=== PATIENT | male | born 1945 | race Caucasian/White ===

== ENCOUNTER 2017-11-22 10:06 | Inpatient (IN) | payer MEDICARE, BC ==
[~2017-11-22] VITALS: Ht 182.9 cm; Wt 88.9 kg
[~2017-11-22 10:06] MED LIST: ACETAMINOPHEN325 M1 PO; ASPIRIN EC81 M1 PO; AZITHROMYCIN 2250 MG; BACTRIM DS TAB1 EAC1; BENICAR40 MG; BRILINTA90 MG PO; KEFLEX500 MG PO; MEDROL DOSPAK21 TA1; METFORMIN HCL500 MG PO; NITROGLYCERIN0.4 MG SL; NORVASC5 MG PO; PERCOCET 5-3251 EACH; PRINIVIL20 MG PO; SIMVASTATIN20 MG PO; TOPROL XL100 MG PO; TRADJENTA5 MG PO
[2017-11-22 10:10] VITALS: BP 146/98
[2017-11-22] MEDS ORDERED: NEURONTIN 300300 M1 PO (10:19)
[2017-11-22 10:34] LABS: ABSOLUTE BASOPHILS 0.1 thou/uL (0.0-0.2); ABSOLUTE EOSINOPHILS 0.4 thou/uL (0.0-0.7); ABSOLUTE LYMPHOCYTES 1.5 thou/uL (0.8-5.3); ABSOLUTE NEUTROPHILS 4.1 thou/uL (1.6-8.1); BASOPHILS 0.8 %; EOSINOPHILS 5.7 %; HEMATOCRIT 46.9 % (42.0-52.0); HEMOGLOBIN 15.5 gm/dL (14.0-18.0); LYMPHOCYTES 21.5 %; MCH 28.5 pg (26.0-34.0); MCHC 33.1 g/dL (28.0-37.0); MCV 86.2 fL (80.0-100.0); MONOCYTES 14.2 %; MPV 8.9 fl. (7.2-11.1); NUCLEATED RBCS 0 /100WBC; PLATELET COUNT* 190 thou/uL (150-400); POLYS 57.8 %; RBC 5.45 mil/uL (4.50-6.00); RDW-CV 15.3 % (10.5-14.5); WBC 7.1 thou/uL (4.0-11.0)
[2017-11-22 10:40] LABS: ANION GAP 9 mmol/L (7-16); BUN 28 mg/dL (7-18); CALCIUM 9.4 mg/dL (8.5-10.1); CHLORIDE 106 mmol/L (98-107); CO2 28 mmol/L (21-32); CREATININE 1.5 mg/dL (0.6-1.3); GLUCOSE 105 mg/dL (70-99); SODIUM 143 mmol/L (136-145)
[2017-11-22 10:44] LABS: APTT 27.2 Seconds (25.0-31.3); INR 1.2; PROTIME 11.7 Seconds (9.20-11.50)
[2017-11-22 10:59] LABS: ALBUMIN 3.9 g/dL (3.4-5.0); ALKALINE PHOSPHATASE 94 U/L (46-116); CK-MB MASS 1.2 ng/mL (<0.5-3.6); LIPASE 143 U/L (73-393); MAGNESIUM 2.2 mg/dL (1.8-2.4); NT-PRO BRAIN NAT PEPTIDE 7170 pg/mL (<300); SGOT 23 U/L (15-37); SGPT 41 U/L (30-65); TOTAL BILIRUBIN 1.1 mg/dL (<0.1-1.0); TOTAL PROTEIN 7.2 g/dL (6.4-8.2); TROPONIN-I LEVEL <0.06 ng/mL (<0.06)
[2017-11-22] MEDS ORDERED: POTASSIUM20 PO (11:04)
[2017-11-22] MEDS ORDERED: LASIX 40 MG TAB40 M2 PO (11:04)
--- NOTE | 2017-11-22 13:33 | NUR ---
VSS, ASSUMED CARE OF PT IN THE AM, ASSESSMENT PERFORMED AND CHARTED, PT HAS 2+ EDEMA AND IS UP AD MICHAEL AND STATES CHEST PAIN RATES PAIN 3 OUT OF 10, PT IS A&O4 AND PT WAS ON 2L NC SAOT AT 97%, PT WAS PLACED ON RA, WILL FOLLOW WITH PLAN OF CARE AND HOURLY ROUNDS, FALL PRECAUTIONS IN PLACE AND CALL LIGHT N REACH, IS AT BEDSIDE,
--- NOTE | 2017-11-22 16:40 | EKG ---
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 : 1945 Requested By: Fredrick Garcia Order Number: [id number] MD: Rigo Gamboa Measurements Intervals [place] Rate: 101 P: 20 MN: 208 QRS: -65 QRSD: 102 T: 93 QT: 373 QTc: 484 Interpretive Statements Sinus tachycardia Paired ventricular premature complexes Borderline prolonged [place] interval Left atrial enlargement Left anterior fascicular block Anterior infarct, old Compared to ECG 08/27/2015 14:00:04 Left anterior fascicular block now present Electronically Signed On 11-22-2017 16:40:28 CDT by iRgo Gamboa [email or web address] <ELECTRONICALLY SIGNED> By: Rigo Gamboa MD, FACC 11/22/17 1640 1011 1011 Rigo Gamboa MD, FAC /EPI
--- NOTE | 2017-11-22 16:44 | EKG ---
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28 : 1945 Requested By: Fredrick Garcia Order Number: [id number] Irma MD: Rigo Gamboa Measurements Intervals [place] Rate: 83 P: 59 W[place]: 215 QRS: -72 QRSD: 109 T: 96 QT: 427 QTc: 502 Interpretive Statements Sinus rhythm Paired ventricular premature complexes Borderline prolonged [place] interval Left atrial enlargement Left anterior fascicular block Prolonged QT interval Compared to ECG 08/27/2015 14:00:04 Left anterior fascicular block now present Prolonged QT interval now present Left-axis deviation no longer present Electronically Signed On 11-22-2017 16:43:53 CDT by Rigo Gamboa [email or web address] <ELECTRONICALLY SIGNED> By: Rigo Gamboa MD, FACC 11/22/17 1643 1540 1540 Rigo Gamboa MD, FACC /EPI
--- NOTE | 2017-11-22 16:51 | 2DMMODE ---
[place] [address] 2 D/M-MODE ECHOCARDIOGRAM Name: PRISCILA BERMAN Vilma Room: [address] IN [facility]#: [id number] Admission: 11/22/17 Attend Phys: Daniel Brizuela Discharge: Date of : 47 Date of Service: 11/22/17 1650 Report #: [id number] THIS REPORT FOR: //name// APPROVED REPORT Study performed: 11/22/2017 14:46:24 EXAM: Comprehensive 2D, Doppler, and color-flow Echocardiogram Patient Location: In-Patient Room #: 218 Status: routine BSA: 2.16 HR: 67 bpm BP: 123/96 mmHg Rhythm: NSR Other Information Study Quality: Good Indications Congestive Heart Failure 2D Dimensions LVEF(%): 25.18 (>50%) IVSd: 11.12 (7-11mm) LVOT Diam: 23.68 (18-24mm) LVDd: 61.50 mm PWd: 10.72 (7-11mm) Ascending Ao: 38.24 (22-36mm) LVDs: 54.19 (25-40mm) Aortic Root: 37.11 mm Gamez's LVEF: 25.18 % Volumes Left Atrial Volume (Systole) LA ESV Index: 40.20 mL/m2 Aortic Valve AoV Peak Alfredo.: 0.81 m/s AO Peak Gr.: 2.63 mmHg LVOT Max P.16 mmHg AO Mean Gr.: 1.62 mmHg LVOT Mean P.53 mmHg LVOT Max V: 0.54 m/s AO V2 VTI: 15.40 cm LVOT Mean V: 0.33 m/s JENNIFER (VTI): 2.36 cm2 LVOT V1 VTI: 8.24 cm TDI Lateral E' Alfredo.: 0.09 m/[place] [address] 2 D/M-MODE ECHOCARDIOGRAM Name: PRISCILA BERMAN Room: [address] IN [facility]#: [id number] Admission: 11/22/17 Attend Phys: Daniel Brizuela Discharge: Date of : 47 Date of Service: 11/22/17 1650 Report #: [id number] Pulmonary Valve PV Peak Alfredo.: 0.55 m/s PV Peak Gr.: 1.21 mmHg Tricuspid Valve TR Peak Gr.: 30.79 mmHg RVSP: 35.00 mmHg Left Ventricle Left ventricle is moderately dilated. There is global left ventricular hypokinesis. There is normal left ventricular wall thickness. Left ventricular systolic function is severely decreased. LVEF is 20-25%. Grade IV - fixed restrictive diastolic dysfunction. Right Ventricle Right ventricle is mildly dilated. The right ventricular systolic function is normal. Atria Left atrium is moderately dilated. Right atrium is dilated. The right atrium size is normal. Aortic Valve The aortic valve is normal in structure. Trace aortic regurgitation. There is no aortic valvular stenosis. Mitral Valve The mitral valve is normal in structure. Mild mitral regurgitation. No evidence of mitral valve stenosis. Tricuspid Valve The tricuspid valve is normal in structure. Trace tricuspid regurgitation. The RVSP is 35-40 mmHg. Pulmonic Valve The pulmonary valve is normal in structure. Mild pulmonic regurgitation. Great Vessels The aortic root is normal in size. IVC is normal in size and collapses with >50% inspiration Pericardium There is no pericardial effusion. <Conclusion> [place] [address] 2 D/M-MODE ECHOCARDIOGRAM Name: PRISCILA BERMAN Room: [address] IN [facility].#: [id number] Admission: 11/22/17 Attend Phys: Daniel Brizuela Discharge: Date of : 47 Date of Service: 11/22/17 1650 Report #: [id number] Left ventricle is moderately dilated. There is normal left ventricular wall thickness. Left ventricular systolic function is severely decreased. LVEF is 20-25%. Grade IV - fixed restrictive diastolic dysfunction. There is global left ventricular hypokinesis. Right ventricle is mildly dilated. Left atrium is moderately dilated. Right atrium is dilated. Trace aortic regurgitation. Mild mitral regurgitation. Trace tricuspid regurgitation. The RVSP is 35-40 mmHg. <ELECTRONICALLY SIGNED> By: Rigo Gamboa MD, FACC 11/22/171649 49 49 Rigo Gamboa MD, FACC /INF
[2017-11-22 16:57] VITALS: BP 119/94
[2017-11-22 20:30] VITALS: BP 129/99
[2017-11-23] VITALS (7 sets, daily range): BP systolic 105–135; BP diastolic 74–99
--- NOTE | 2017-11-23 04:50 | NUR ---
ASSUMED CARE AROUND 1930. PT A/OX4, PLEASANT. DENIES ANY PAIN OR SOA. TELE MONITOR TRACING SR WITH FREQUENT PVC'S. VSS. ON ROOM AIR. UP AD MICHAEL. VOIDING PER URINAL IN BR. IV SALINE LOCKED. FAMILY AT BEDSIDE LAST NIGHT AND ASKING QUESTIONS ABOUT EF AND CHF. EDUCATION DONE. SEE CHARTING. CALL LIGHT IN REACH, WILL CONTINUE WITH PLAN OF CARE.
[2017-11-23 05:02] LABS: ABSOLUTE BASOPHILS 0.1 thou/uL (0.0-0.2); ABSOLUTE EOSINOPHILS 0.4 thou/uL (0.0-0.7); ABSOLUTE LYMPHOCYTES 1.2 thou/uL (0.8-5.3); ABSOLUTE MONOCYTES 0.9 thou/uL (0.0-1.2); ABSOLUTE NEUTROPHILS 4.8 thou/uL (1.6-8.1); BASOPHILS 0.7 %; EOSINOPHILS 5.3 %; HEMATOCRIT 43.5 % (42.0-52.0); HEMOGLOBIN 14.4 gm/dL (14.0-18.0); LYMPHOCYTES 16.3 %; MCH 28.6 pg (26.0-34.0); MCHC 33.1 g/dL (28.0-37.0); MCV 86.3 fL (80.0-100.0); MONOCYTES 12.1 %; MPV 9.1 fl. (7.2-11.1); NUCLEATED RBCS 0 /100WBC; PLATELET COUNT* 174 thou/uL (150-400); POLYS 65.6 %; RBC 5.04 mil/uL (4.50-6.00); WBC 7.4 thou/uL (4.0-11.0)
[2017-11-23 05:20] LABS: CALCIUM 9.2 mg/dL (8.5-10.1); CREATININE 1.4 mg/dL (0.6-1.3); POTASSIUM 3.7 mmol/L (3.5-5.1)
--- NOTE | 2017-11-23 11:38 | EKG ---
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1945 Requested By: Fredrick Garcia Order Number: [id number] Reading MD: Abundio Abdullahi Measurements Intervals [place] Rate: 103 P: -18 AR: 206 QRS: -79 QRSD: 106 T: 96 QT: 393 QTc: 515 Interpretive Statements Sinus arrhythmia Multiform ventricular premature complexes Probable left atrial enlargement Left anterior fascicular block Anterior Q waves, possibly due to LVH Nonspecific T abnormalities, lateral leads Prolonged QT interval Compared to ECG 11/22/2017 15:40:23 no change Electronically Signed On 11-23-2017 11:37:53 CDT by Abundio Abdullahi [email or web address] <ELECTRONICALLY SIGNED> By: Abundio Abdullahi MD, [facility] 11/23/17 1137 00 00 Abundio Abdullahi MD, [facility] /EPI
--- NOTE | 2017-11-23 12:17 | NUR ---
RECEIVED PT CARE 0700. PT IS ALERT AND ORIENTED X4. VSS. 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 PATIENT DENIES ANY SOA. O2 SAT 97% ON ROOM AIR. UP AD MICHAEL IN ROOM. GAIT IS STEADY. AM ASSESSMENT CHARTED. MEDS PER MAR. VOIDING PER URINAL. ACCURATE I/O'S RECORDED. PATIENT UP TO DATE ON PLAN OF CARE. CALL LIGHT WITHIN REACH. WILL CONTINUE TO MONITOR.
--- NOTE | 2017-11-23 14:22 | NUR ---
MET WITH PT TO DISCUSS HOME STIUATION/DC PLANNING. PT LIVES WITH . HE IS INDEPENDENT AND ACTIVE. USES NO EQUIPMENT AND HASN'T HAD HH. STATES HE IS FEELING IMPROVED. HOPES TO GO HOME SOON AND DENIES NEEDS. CARDIAC REHAB NURSE SAW TODAY AND GAVE ED. WILL FOLLOW
--- NOTE | 2017-11-23 17:24 | NUR ---
PATIENT PROGRESSING TOWARDS GOALS. NO COMPLAINTS OF PAIN THIS SHIFT. GOOD URINE OUTPUT. TOLERATING HIS DIET WELL WITHOUT NAUSEA OR VOMITING. UP AMBULATORY IN ROOM WITH BATHROOM PRIVILEDGES. GAIT IS STEADY. PLANNING FOR DC TO HOME TOMORROW IF STABLE. HOURLY ROUNDING CHARTED. CALL LIGHT WITHIN REACH. WILL CONTINUE TO MONITOR.
[2017-11-24 00:04] VITALS: BP 123/88
[2017-11-24 04:00] VITALS: BP 103/66
--- NOTE | 2017-11-24 04:37 | NUR ---
END SHIFT: PT RESTED WELL. NO COMPLAINTS. NO PAIN. ASESSMENT UNCHANGED. VSS. AWAITING DC HOME TODAY. SAFETY PRECAUTIONS IN PLACE. CALL LIGHT IN REACH. PERFORMED HOURLY ROUNDING. WILL CONT TO MONITOR.
[2017-11-24 05:19] LABS: ABSOLUTE EOSINOPHILS 0.4 thou/uL (0.0-0.7); ABSOLUTE NEUTROPHILS 5.3 thou/uL (1.6-8.1); BASOPHILS 0.5 %; EOSINOPHILS 5.3 %; HEMATOCRIT 45.7 % (42.0-52.0); HEMOGLOBIN 15.1 gm/dL (14.0-18.0); MCH 28.4 pg (26.0-34.0); MCHC 33.1 g/dL (28.0-37.0); MCV 85.9 fL (80.0-100.0); MONOCYTES 12.5 %; NUCLEATED RBCS 0 /100WBC; PLATELET COUNT* 170 thou/uL (150-400); POLYS 68.7 %; RBC 5.32 mil/uL (4.50-6.00); RDW-CV 14.9 % (10.5-14.5); WBC 7.7 thou/uL (4.0-11.0)
[2017-11-24 05:32] LABS: CALCIUM 9.2 mg/dL (8.5-10.1); CREATININE 1.4 mg/dL (0.6-1.3); POTASSIUM 3.6 mmol/L (3.5-5.1)
[2017-11-24 07:30] VITALS: BP 134/86
[2017-11-24 11:27] VITALS: BP 126/79
[2017-11-24] MEDS ORDERED: COZAAR 25 MG TA25 M1 PO (12:19)
[2017-11-24] MEDS ORDERED: CARVEDILOL3.125 MG PO (12:21)
--- NOTE | 2017-11-24 13:07 | NUR ---
CM SPOKE TO THE PATIENT TO DISCUSS DISCHARGE PLANNING NEEDS AND ANY QUESTIONS OR CONCENS THAT HE MAY HAVE. PATIENT INFORMS THAT HE NEEDS A LIST OF PCP. CM PROVIDED PATIENT A LIST OF PCP'S IN THE AREA. PATIENT TO DISCHARGE HOME TODAY AND HAS NO OTHER QUESTIONS OR CONCERNS AT THIS TIME. CM WILL REMAIN AVAILABLE TO ASSIST AND FOLLOW NEEDED.
--- NOTE | 2017-11-24 13:56 | NUR ---
VSS, ASSUMED CARE IN THE AM, ASSESSMENT PERFORMED AND CHARTED, FALL PRECAUTIONS IN PLACE AND CALL LIGHT IN REACH, PT IS UP AD MICHAEL AND DENIES ANY PAIN, PT GOAL IS TO D/C TO HOME ON DAY OF CARE, PT IS TRACINGS SR WITH PVCS ON THE MONITOR, PT ON RA WITH FAMILY AT BEDSIDE AT THIS TIME I HAVE RECIEVED D/C ORDERS, FILLED OUT D/C MEDICATIONS AND INSTRUCTIONS, PROVITED SCRIPTS AND MEDICATIONS INFO SHEETS WITH SCRIPTS, PT DAINES ANY QUESTIONS OR CONCERNS AT TIME OF D/C, IV AND TELE MONITOR TAKEN OUT, PT GATHERED BELONGINGS WALKED OUT BY STAFF AND HOURLY ROUNDS COMPLETED.
== END 2017-11-24 14:07 | disposition home or self-care (01) | DRG 291 ==
LOC: M.ERS 10:06 → M.TBA-ER 11:02 → M.2W 11:02
PROVIDERS: Family Medicine; ADMIT Internal Medicine
DX: I13.0 Hypertensive heart and chronic kidney disease with heart failure and stage 1 through stage 4 chronic kidney disease, or unspecified chronic kidney disease (principal); I50.23 Acute on chronic systolic (congestive) heart failure; I25.110 Atherosclerotic heart disease of native coronary artery with unstable angina pectoris; N18.3 Chronic kidney disease, stage 3 (moderate); E78.00 Pure hypercholesterolemia, unspecified; E78.5 Hyperlipidemia, unspecified; E11.22 Type 2 diabetes mellitus with diabetic chronic kidney disease; I25.5 Ischemic cardiomyopathy; I25.2 Old myocardial infarction; Z95.5 Presence of coronary angioplasty implant and graft; Z90.5 Acquired absence of kidney; Z85.528 Personal history of other malignant neoplasm of kidney; Z79.899 Other long term (current) drug therapy; Z79.82 Long term (current) use of aspirin; Z79.84 Long term (current) use of oral hypoglycemic drugs

== ENCOUNTER 2019-12-24 12:15 | Inpatient (IN) | payer MEDICARE, BC ==
[~2019-12-24] VITALS: Ht 185.4 cm; Wt 92.1 kg
[2019-12-24] VITALS (9 sets, daily range): BP systolic 112–144; BP diastolic 71–96
[~2019-12-24 12:15] MED LIST changes: +CARVEDILOL3.125 MG PO; +COZAAR 25 MG TA25 M1 PO; +LASIX 40 MG TAB40 M2 PO; +NEURONTIN 300300 M1 PO; +POTASSIUM20 PO
[2019-12-24 12:30] LABS: ABSOLUTE EOSINOPHILS 0.2 thou/uL (0.0-0.7); ABSOLUTE LYMPHOCYTES 0.9 thou/uL (0.8-5.3); ABSOLUTE MONOCYTES 0.6 thou/uL (0.0-1.2); ABSOLUTE NEUTROPHILS 3.2 thou/uL (1.6-8.1); EOSINOPHILS 4.8 %; HEMOGLOBIN 15.6 gm/dL (14.0-18.0); LYMPHOCYTES 18.6 %; MCH 30.3 pg (26.0-34.0); MCHC 33.9 g/dL (28.0-37.0); MCV 89.4 fL (80.0-100.0); MONOCYTES 11.9 %; MPV 8.6 fl. (7.2-11.1); NUCLEATED RBCS 0 /100WBC; PLATELET COUNT* 164 thou/uL (150-400); POLYS 63.7 %; RBC 5.14 mil/uL (4.50-6.00); RDW-CV 14.8 % (10.5-14.5); WBC 5.1 thou/uL (4.0-11.0)
[2019-12-24 12:38] LABS: CALCIUM 8.8 mg/dL (8.5-10.1); CREATININE 1.5 mg/dL (0.6-1.3); POTASSIUM 3.9 mmol/L (3.5-5.1)
[2019-12-24] MEDS ORDERED: ENTRESTO 24 MG1 EACH PO (12:38)
[2019-12-24] MEDS ORDERED: TRADJENTA5 MG (12:38)
[2019-12-24 12:39] LABS: APTT 26.5 Seconds (25.0-31.3); INR 1.1; PROTIME 11.4 Seconds (9.20-11.50)
[2019-12-24 12:49] LABS: ALBUMIN 3.7 g/dL (3.4-5.0); TOTAL BILIRUBIN 0.9 mg/dL (<0.1-1.0); TOTAL PROTEIN 7.3 g/dL (6.4-8.2)
--- NOTE | 2019-12-24 16:36 | EKG ---
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 : 1945 Requested By: Sotero Carcamo Order Number: [id number] MD: Abundio Abdullahi Measurements Intervals [place] Rate: 83 P: 66 SD: 70 QRS: -80 QRSD: 119 T: 120 QT: 413 QTc: 486 Interpretive Statements Sinus rhythm Ventricular bigeminy Left atrial enlargement Left anterior fascicular block Nonspecific T abnormalities, lateral leads Compared to ECG 11/22/2017 21:01:07 Q waves no longer present Prolonged QT interval no longer present T-wave abnormality still present Electronically Signed On 12-24-2019 16:34:48 CDT by Abundio Abdullahi [email or web address] <ELECTRONICALLY SIGNED> By: Abundio Abdullahi MD, [facility] 12/24/19 1634 1217 1217 Abundio Abdullahi MD, [facility] /EPI
--- NOTE | 2019-12-24 17:11 | CARD ---
[address] [address] CARDIAC CATH REPORT Name: PRISCILA BERMAN Room: [address] IN [facility]#: [id number] Admission: 12/24/19 Attend Phys: Alonzo Cox Discharge: Date of : 47 Report #: [id number] THIS REPORT FOR: //name// cc: Walt Roy John E. DO ~ APPROVED REPORT Study performed: 12/24/2019 13:32:00 Patient Details Patient Status: ED Room #: The patient is a 74 year-old male Event Personnel Abundio Abdullahi Rubber Compounder Mixer, Dixie Rodriguez RN RN, Noemy Anne RN RN, Terese Lopez RTR Scrub, Laura Garcia RTR Monitor Procedures Performed Art Access - R radial artery Left Heart Cath w/or w/o Coronaries JONO Place w/wo Plasty Single LAD JONO Place w/wo Plasty Single CIRC Hemostasis with Hemoband Indication Abnormal ECG, Arrhythmia, Unstable angina , Chest pain Risk Factors Hypercholesterolemia, Coronary Artery DiseaseHypertension, Diabetes Previous Procedures/Diagnoses Previous PCI, Previous CHFPrevious DE Admission/Lab Medications/Medications given during procedure Glycoprotein IllbIlla Inhibitors, Heparin Unfract. Procedure Narrative The patient was brought urgently to the Cardiac Catheterization Laboratory and was prepped and draped in a sterile manner. The right wrist was infiltrated with 2% Lidocaine subcutaneous anesthesia. A Slender Glidesheath sheath was inserted into the right radial artery. Coronary angiography was performed using coronary diagnostic catheters. The right coronary system was accessed and visualized with a Diagnostic 6 Fr 3 DRC catheter. The left coronary system was accessed and visualized with a Diagnostic 6 Fr JL 4 catheter. The left ventricle was accessed [place] [address] CARDIAC CATH REPORT Name: PRISCILA BERMAN Room: [address]#: [id number] Admission: 12/24/19 Attend Phys: Alonzo Cox Discharge: Date of : 47 Report #: [id number] catheter. Left ventricular/Aortic Valve gradient assessed via catheter pullback. Closure device was deployed with a 6 Fr Vasc-Band Reg 24cm. The patient tolerated the procedure well and there were no complications associated with the procedure. There was no hematoma. Unable to cannulate RCA with diagnostic JR4 catheter because of unusual takeoff in the right coronary cusp. Intraoperative Conscious Sedation Sedation start time: 14:43 Case end Time: 15:52 Fentanyl 25.0 mcg Versed 2 mg Fluoro Time: 14.5 minutes Dose: DAP [id number] cGycm2 2726 mGy Contrast Type and Amount: Visipaque 250 ml Coronary Angiography The patient's coronary anatomy is right dominant. Diagnostic Cath Left Main 30% ostial stenosis LAD stent in the proximal and mid lad had a mid 90% stenosis with thrombus. The distal LAD beyond the stent had a 90% stenosis, although the distal LAD had a small lumen. Circumflex 80% stenois in the mid circumflex artery beyond the first marginal branch, and 80% stenosis noted beyond the 2nd marginal branch, and a 90% stenosis noted prior to the third marginal branch. The third marginal branch had an ostial 70% stenosis. Right Coronary Mid RCA was 100% stenosis, with slow antegrade flow, and retrograde flow from collaterals from the left coronary artery. Left Ventriculography Left Ventriculography was not performed. Hemodynamics The aortic pressure is 107/43 mmHg with a mean of 69 mmHg. The left ventricular pressure is 97/10 mmHg with a mean of mmHg. The left ventricular end diastolic pressure is 20 mmHg. There was no gradient across the aortic valve upon pullback. Pullback from the left ventricle to the aorta revealed no gradient across the aortic valve. PCI Technique Lesion Anticoagulation was achieved with Heparin. bolus of IV aggrastat given Percutaneous coronary [place] [address] CARDIAC CATH REPORT Name: CULLENPRISCILA L Room: [address] IN [facility]#: [id number] Admission: 12/24/19 Attend Phys: Alonzo Cox Discharge: Date of : 47 Report #: [id number] left anterior descending artery segment. The lesion stenosis prior to intervention was 90% with ALVIN 3 flow. A 6F XB 4.0 Guide Catheter was used to engage the left ostium. A IG: BMW 190cm Interventional Guidewire was used to cross the lesion. BALLOON DILATION A Balloon catheter Trek RX 2.5 X 8 was inserted and inflated up to 16.00atm for 16seconds. Repeat angiography revealed the following post-dilatation results: 50% stenosis. Additional Inflation: 18.00atm for 12seconds. STENT DEPLOYMENT A drug-eluting stent Olmitz RX Stent 3.0X22mm was inserted and inflated up to 12.00atm for 17seconds. Repeat angiography revealed the following post-stent deployment results: 0% stenosis. Additional Inflation: 15.00atm for 15seconds. Additional Inflation: 20.00atm for 18seconds. Final angiography reveals 0 % stenosis with ALVIN 3 flow. PCI Technique Lesion 2 Percutaneous Coronary Intervention was performed on the distal circumflex artery segment. Percutaneous coronary intervention was performed on the distal circumflex artery segment. The lesion stenosis prior to intervention was 90% with ALVIN flow. A 6F XB 4.0 Guide Catheter was used to engage the left ostium. A IG: BMW 190cm Interventional Guidewire was used to cross the lesion. Balloon Dilation A Balloon catheter Trek RX 2.5 X 8 was inserted and inflated up to 7.00atm for 15seconds. Repeat angiography revealed the following post-dilatation results: 30% stenosis. Additional Inflation: 16.00atm for 24seconds. Stent Deployment A drug-eluting stent Olmitz RX Stent 2.62R05cq was inserted and inflated up to 10.00atm for 15seconds. Repeat angiography revealed the following post-stent deployment results: 0% stenosis. Additional Inflation: 11.00atm for 10seconds. Additional Inflation: 17.00atm for 9seconds. Final angiography reveals 0 % stenosis with ALVIN 3 flow. PCI Technique Lesion 3 Percutaneous Coronary Intervention was performed on the mid circumflex artery segment. Patient was preloaded with Aggrastat 9.[address] [address] CARDIAC CATH REPORT Name: PRISCILA BERMAN Room: [address]#: [id number] Admission: 12/24/19 Attend Phys: Alonzo Cox Discharge: Date of : 47 Report #: [id number]. Percutaneous coronary intervention was performed on the mid circumflex artery segment. The lesion stenosis prior to intervention was 80% with ALVIN 3 flow. A 6F XB 4.0 Guide Catheter was used to engage the left ostium. A IG: BMW 190cm Interventional Guidewire was used to cross the lesion. Balloon Dilation A Balloon catheter Trek RX 2.5 X 8 was inserted and inflated up to 20.00atm for 7seconds. Repeat angiography revealed the following post-dilatation results: 30% stenosis. Stent Deployment A drug-eluting stent Landon RX Stent 3.0X38mm was inserted and inflated up to 14.00atm for 18seconds. Repeat angiography revealed the following post-stent deployment results: 0% stenosis. Additional Inflation: 20.00atm for 21seconds. The second stent in the mid circumflex artery was placed so that there was minimal overlap between this stent and the more distal stent in the circumflex artery. Final angiography reveals 0 % stenosis with ALVIN 3 flow. Conclusion 1. 90% stenosis noted of a stent in the mid lad with thrombus 2. 80% stenosis noted in the mid circumflex artery, and 80% and 90% sequential stenosis noted in the distal circumflex 3. 100% stenosis noted of the mid rca, with slow antegrade flow, and retrograde flow from collaterals from the left coronary artery. 4. successful placement of a drug eluting stent in the mid lad 5. successful placement of 2 drug eluting stents in the cicumflex artery. Recommendations consider attempts at stenting of the rca at a later date Medications Administered Prasugrel <ELECTRONICALLY SIGNED> By: Abundio Abdullahi MD, [facility] 12/24/191708 08 08Dasantiago Abdullahi MD, [facility] /INF
[2019-12-25] VITALS (7 sets, daily range): BP systolic 102–131; BP diastolic 58–92
[2019-12-25 04:39] LABS: HEMATOCRIT 42.2 % (42.0-52.0); HEMOGLOBIN 14.3 gm/dL (14.0-18.0); MCH 30.4 pg (26.0-34.0); MCV 89.3 fL (80.0-100.0); MPV 8.7 fl. (7.2-11.1); RBC 4.72 mil/uL (4.50-6.00); RDW-CV 14.6 % (10.5-14.5); WBC 5.6 thou/uL (4.0-11.0)
[2019-12-25 04:59] LABS: ANION GAP 10 mmol/L (7-16); BUN 16 mg/dL (7-18); CALCIUM 8.5 mg/dL (8.5-10.1); CHLORIDE 104 mmol/L (98-107); CHOLESTEROL 160 mg/dL (<200); CO2 26 mmol/L (21-32); CREATININE 1.4 mg/dL (0.6-1.3); GLUCOSE 113 mg/dL (70-99); HDL CHOLESTEROL 44 mg/dL (>40); LDL CHOLESTEROL 104 mg/dL (<100); POTASSIUM 3.6 mmol/L (3.5-5.1); SODIUM 140 mmol/L (136-145); TC:HDL 3.6 Ratio (Not establshd); TRIGLYCERIDE 62 mg/dL (<150); VLDL 12 mg/dL (<40)
[2019-12-25 05:32] LABS: SERUM ASSESSMENT CLEAR; TROPONIN-I LEVEL 12.37 ng/mL (<0.06)
--- NOTE | 2019-12-25 10:09 | CON ---
[address] [address] CONSULTATION Name: PRISCILA BERMAN Room: [address] IN .R.#: [id number] Admission: 12/24/19 Attend Phys: Alonzo Cox Discharge: Date of : 47 Report #: [id number] THIS REPORT FOR: //name// cc: Walt Roy John E. DO ~ THIS REPORT FOR: //name// CC: Walt Hernandez DATE OF SERVICE: 12/24/2019 CARDIOLOGY CONSULTATION HISTORY OF PRESENT ILLNESS: The patient is a 74-year-old white male who came to the Emergency Room today complaining of chest pain. The patient initially presented in 2011 with chest pain. He had a heart catheterization here at [place] and I placed two drug-eluting stents in the LAD. He has done well since that time. He had evidence of an ischemic cardiomyopathy at that time. Ejection fraction in 2016 was 35%. However, echocardiogram last July showed an ejection fraction only 25%. He has been followed by my partner, Dr. Rigo Gamboa. He does not exercise on a regular basis. He denies any recurrent chest pain until the past couple of weeks. He has been having recurrent pain in his chest. It goes into arm and jaw. He had an episode last night. It returned this morning. His finally brought him to the Emergency Room, he was given nitroglycerin that seemed to help. The pain was not related to food. He had no bleeding. He has had no cough or fever. He denies exertional dyspnea, palpitations, syncope, or peripheral edema. He has had no bleeding. PAST MEDICAL HISTORY: He had previous history of kidney cancer treated by nephrectomy at [place] in the past. He has a history of hyperlipidemia. MEDICATIONS: Include aspirin, carvedilol, Lasix, Neurontin, metformin, Tradjenta, Entresto. ALLERGIES: HE HAS PREVIOUS INTOLERANCE TO STATIN DRUGS. FAMILY HISTORY: His father had heart disease. SOCIAL HISTORY: He is . He and his live in [place]. 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 No smoking or alcohol abuse. REVIEW OF SYSTEMS: He is hard of hearing. No history of stroke, [place] [address] CONSULTATION Name: PRISCILA BERMAN Room: [address]#: [id number] Admission: 12/24/19 Attend Phys: Alonzo Cox Discharge: Date of : 47 Report #: [id number] carotid Doppler study showed no significant blockage. He has no history of asthma, liver disease, arthritis, chronic skin condition, psychiatric illness. PHYSICAL EXAMINATION: GENERAL: Revealed an elderly male who appeared in no distress. VITAL SIGNS: He had a blood pressure of 120/80, pulse 60, he is afebrile. HEENT: He was anicteric. Conjunctivae pink. Mucous membranes moist. NECK: Veins nondistended. No carotid bruits. CHEST: Clear to auscultation. CARDIOVASCULAR: Regular rate and rhythm. ABDOMEN: Soft. EXTREMITIES: Had no edema. Dorsalis pedis pulse cannot be palpated. SKIN: Cool and dry. NEUROLOGIC: Nonfocal. RADIOLOGICAL DATA: ECG showed a sinus rhythm with ventricular bigeminy. There is evidence of a left anterior fascicular block, poor R-wave progression. There was only nonspecific T-wave changes noted. His workup in the Emergency Room, he had a portable chest x-ray that showed normal heart size and clear lung cosme. LABORATORY DATA: Sodium 142, BUN 22, creatinine 1.5. His liver function studies were normal. Troponin 0.53. His white blood cell count 5.1, hemoglobin 15.6. IMPRESSION AND RECOMMENDATIONS: 1. Unstable angina. Recommend cardiac catheterization. 2. Ischemic cardiomyopathy. The patient appears stable on a beta kathy and Entresto. I would consider adding spironolactone. 3. Diabetes. 4. Chronic kidney disease. 5. Previous removal of renal cell carcinoma. 6. Hard of hearing. <ELECTRONICALLY SIGNED> By: Abundio Abdullahi MD, FACC 12/25/19 1009 1349 [id number] Abdullahi MD, FACC /nt
--- NOTE | 2019-12-25 12:38 | 2DMMODE ---
[place] [address] 2 D/M-MODE ECHOCARDIOGRAM Name: PRISCILA BERMAN Room: [address] IN [facility]#: [id number] Admission: 12/24/19 Attend Phys: Daniel Brizuela Discharge: Date of : 47 Date of Service: 12/25/19 1236 Report #: [id number] THIS REPORT FOR: cc: Walt Roy John E. DO Liston, Michael J. MD [facility] ~ APPROVED REPORT Study performed: 12/25/2019 09:50:42 EXAM: Comprehensive 2D, Doppler, and color-flow Echocardiogram Patient Location: In-Patient Room #: [facility] Status: routine BSA: 2.17 HR: 63 bpm BP: 116/84 mmHg Rhythm: NSR Other Information Study Quality: Good Indications Chest Pain 2D Dimensions IVSd: 13.47 (7-11mm) LVOT Diam: 22.45 (18-24mm) LVDd: 62.75 mm PWd: 9.91 (7-11mm) Ascending Ao: 38.10 (22-36mm) LVDs: 54.10 (25-40mm) Aortic Root: 40.86 mm Volumes Left Atrial Volume (Systole) LA ESV Index: 42.80 mL/m2 Aortic Valve AoV Peak Alfredo.: 1.11 m/s AO Peak Gr.: 4.93 mmHg LVOT Max P.72 mmHg AO Mean Gr.: 2.76 mmHg LVOT Mean P.66 mmHg LVOT Max V: 0.66 m/s AO V2 VTI: 18.42 cm LVOT Mean V: 0.36 m/s JENNIFER (VTI): 2.22 cm2 LVOT V1 VTI: 10.34 [place] [address] 2 D/M-MODE ECHOCARDIOGRAM Name: PRISCILA BERMAN Room: [address]#: [id number] Admission: 12/24/19 Attend Phys: Daniel Brizuela Discharge: Date of : 47 Date of Service: 12/25/19 1236 Report #: [id number] TDI Medial E' Alfredo.: 0.04 m/s Lateral E' Alfredo.: 0.09 m/s Pulmonary Valve PV Peak Alfredo.: 0.73 m/s PV Peak Gr.: 2.10 mmHg Tricuspid Valve RAP Estimate: 15.00 mmHg TR Peak Gr.: 37.05 mmHg RVSP: 52.00 mmHg PA Pressure: 52.00 mmHg Left Ventricle Left ventricle is mildly dilated. There is akinesis of the anterior, septal and apical almeida. There is normal left ventricular wall thickness. Left ventricular systolic function is severely decreased. LVEF is 25-30%. Transmitral Doppler flow pattern suggests restrictive physiology. Right Ventricle Right ventricle is moderately dilated. The right ventricular systolic function is normal. Atria Left atrium is moderately dilated. Right atrium is moderately dilated. Aortic Valve Mild aortic valve sclerosis. Trace aortic regurgitation. There is no aortic valvular stenosis. Mitral Valve The mitral valve is normal in structure. Mild mitral regurgitation. No evidence of mitral valve stenosis. Tricuspid Valve The tricuspid valve is normal in structure. Trace tricuspid regurgitation. Moderate pulmonary hypertension. Pulmonic Valve The pulmonary valve is normal in structure. Mild pulmonic regurgitation. Great Vessels The aortic root is normal in size. IVC is dilated and collapses <50% [place] [address] 2 D/M-MODE ECHOCARDIOGRAM Name: PRISCILA BERMAN Vilma Room: [address]#: [id number] Admission: 12/24/19 Attend Phys: Daniel Brizuela Discharge: Date of : 47 Date of Service: 12/25/19 1236 Report #: [id number] Pericardium There is no pericardial effusion. <Conclusion> Left ventricle is mildly dilated. There is normal left ventricular wall thickness. Left ventricular systolic function is severely decreased. LVEF is 25-30%. Transmitral Doppler flow pattern suggests restrictive physiology. Right ventricle is moderately dilated. Left atrium is moderately dilated. Right atrium is moderately dilated. Mild aortic valve sclerosis. Trace aortic regurgitation. Mild mitral regurgitation. Trace tricuspid regurgitation. Moderate pulmonary hypertension. IVC is dilated and collapses <50% with inspiration. <ELECTRONICALLY SIGNED> By: Rigo Gamboa MD, FACC 12/25/19 1236 1236 1236 Rigo Gamboa MD, FACC /INF
--- NOTE | 2019-12-25 14:19 | EKG ---
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 : 1945 Requested By: Abundio Abdullahi Order Number: [id number] Irma MD: Abundio Abdullahi Measurements Intervals [place] Rate: 62 P: 55 OH: 224 QRS: -78 QRSD: 124 T: 118 QT: 483 QTc: 491 Interpretive Statements Sinus rhythm late transition Ventricular trigeminy Prolonged [place] interval Probable left atrial enlargement Nonspecific IVCD with LAD repolarization abnormality Compared to ECG 12/24/2019 12:17:02 First degree AV block now present Electronically Signed On 12-25-2019 14:17:53 CDT by Abundio Abdullahi [email or web address] <ELECTRONICALLY SIGNED> By: Abundio Abdullahi MD, [facility] 12/25/19 1417 1637 1637 Abundio Abdullahi MD, [facility] /EPI
--- NOTE | 2019-12-25 14:32 | EKG ---
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 Outside: : 1945 Requested By: Abundio Abdullahi Order Number: [id number] Reading MD: Abundio Abdullahi Measurements Intervals [place] Rate: 83 P: 53 NM: 215 QRS: -74 QRSD: 117 T: 112 QT: 451 QTc: 530 Interpretive Statements Sinus rhythm Ventricular bigeminy Borderline prolonged NM interval Probable left atrial enlargement Left anterior fascicular block late transition Compared to ECG 12/24/2019 12:17:02 no change Electronically Signed On 12-25-2019 14:30:47 CDT by Abundio Abdullahi [email or web address] <ELECTRONICALLY SIGNED> By: Abundio Abdullahi MD, [facility] 12/25/19 1430 08 6 Abundio Abdullahi MD, [facility] /EPI
[2019-12-26] VITALS (21 sets, daily range): BP systolic 107–147; BP diastolic 68–101
[2019-12-26 02:07] LABS: GLYCOHEMOGLOBIN (HGB A1C) 6.5 % (4.8-5.6)
--- NOTE | 2019-12-26 15:22 | EKG ---
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 : 1945 Requested By: Abundio Abdullahi Order Number: [id number] Irma MD: Abundio Abdullahi Measurements Intervals [place] Rate: 78 P: 68 AL: 223 QRS: -79 QRSD: 115 T: 107 QT: 448 QTc: 511 Interpretive Statements Sinus rhythm Paired ventricular premature complexes Prolonged AL interval Probable left atrial enlargement Nonspecific IVCD with LAD Inferior infarct, old Anterior Q waves, Compared to ECG 12/25/2019 08:27:02 no change Electronically Signed On 12-26-2019 15:21:09 CDT by Abundio Abdullahi [email or web address] <ELECTRONICALLY SIGNED> By: Abundio Abdullahi MD, [facility] 12/26/19 1521 1044 1044 Abundio Abdullahi MD, [facility] /EPI
--- NOTE | 2019-12-26 17:01 | CARD ---
[address] [address] CARDIAC CATH REPORT Name: PRISCILA BERMAN Room: [address] IN [facility]#: [id number] Admission: 12/24/19 Attend Phys: Alonzo Cox Discharge: Date of : 47 Report #: [id number] THIS REPORT FOR: //name// cc: Walt Roy John E. DO ~ APPROVED REPORT Study performed: 12/26/2019 07:54:01 Patient Details Patient Status: In-Patient Room #: 215 The patient is a 74 year-old male Event Personnel Abundio Abdullahi Manager Title, Kim Todd RN, Noemy Anne RN RN, Dez Gaming GRADE CHECKER Monitor, Laura Garcia RTR Scrub Procedures Performed cath pci Indication Non-STEMI , Arrhythmia, Cardiomyopathy, Chest pain Risk Factors Hypercholesterolemia, Coronary Artery Disease, Diabetes Previous Procedures/Diagnoses Previous PCI, Previous NC Admission/Lab Medications/Medications given during procedure Heparin Unfract. Procedure Narrative The patient was brought electively to the Cardiac Catheterization Laboratory and was prepped and draped in a sterile manner. The right femoral was infiltrated with 1% Lidocaine subcutaneous anesthesia. A [place] 6 FR sheath was inserted into the right femoral artery. Coronary angiography was performed using coronary diagnostic catheters. The right coronary system was accessed and visualized with a 6FR AL .075 100CM catheter. The left coronary system was accessed and visualized with a JL4 6fr catheter. The left ventricle was accessed and visualized with a 6 Fr Straight Pigtail catheter. Left ventricular/Aortic Valve gradient assessed via catheter pullback. Left ventriculogram was performed in GRIMALDO projection. Closure device was deployed with a 6 Fr Angioseal STS 6Fr. [place] [address] CARDIAC CATH REPORT Name: PRISCILA BERMAN Vilma Room: [address] IN [facility]#: [id number] Admission: 12/24/19 Attend Phys: Alonzo Cox Discharge: Date of : 47 Report #: [id number] procedure well and there were no complications associated with the procedure. There was no hematoma. Intraoperative Conscious Sedation Sedation start time: 853 Case end Time: 947 Versed 2 mg Fluoro Time: 10.6 minutes Dose: DAP 394649 cGycm2 1649 mGy Contrast Type and Amount: Visipaque 200 ml Coronary Angiography The patient's coronary anatomy is right dominant. Diagnostic Cath Left Main 30% proximal stenosis LAD stent in the proximal and mid lad had 30% stenosis. Beyond the stent, there was a 90% stenosis in the apical lad which had a very narrow lumen Diagonal 2 small vessel with 80% ostial stenosis Circumflex 30% proximal stenosis. Stent in mid circumflex had 0% stenosis OM3 small vessel with 70% ostial stenosis Right Coronary Unusual takeoff of the RCA which arose anterior in the right coronary cusp. There was a 90% stenosis after the RV branch in the mid RCA, and a 99% stenosis prior to the acute margin. Retrograde collaterals were noted arising from the left coronary artery. Left Ventriculography The left ventricular ejection fraction is estimated to be 10%. Left ventricular wall motion abnormalities are present. There is 1+ mitral insufficiency. akinesis noted of the inferior wall and mid and distal anteroapical wall. Hemodynamics The aortic pressure is 131/69 mmHg with a mean of 101 mmHg. The left ventricular pressure is 134/14 mmHg with a mean of mmHg. The left ventricular end diastolic pressure is 27 mmHg. There was no gradient across the aortic valve upon pullback. Pullback from the left ventricle to the aorta revealed no gradient across the aortic valve. PCI Technique Lesion Anticoagulation was achieved with Heparin. Patient was preloaded with [address] [place] [address] CARDIAC CATH REPORT Name: LARA BERMANYCE Vilma Room: [address]#: [id number] Admission: 12/24/19 Attend Phys: Alonzo Cox Discharge: Date of : 47 Report #: [id number] Effient. Percutaneous coronary intervention was performed on the mid right coronary artery. The lesion stenosis prior to intervention was 99% with ALVIN 2 flow. A 6FR AL .075 100CM Guide Catheter was used to engage the RCA ostium. A IG: BMW 190cm Interventional Guidewire was used to cross the lesion. BALLOON DILATION A Balloon catheter Trek RX 3.0 X 12 was inserted and inflated up to 18.00atm for 19seconds. Repeat angiography revealed the following post-dilatation results: 40% stenosis. Unable to cannulate RCA with Amplatz I modified right guide catheter. STENT DEPLOYMENT A drug-eluting stent Benedict RX Stent 4.0x26MM was inserted and inflated up to 11.00atm for 17seconds. Repeat angiography revealed the following post-stent deployment results: 0% stenosis. Additional Inflation: 13.00atm for 13seconds. Additional Inflation: 17.00atm for 16seconds. 19 LYNN FOR 15 SEC Final angiography reveals 0 % stenosis with ALVIN 3 flow. Conclusion 1. No stenosis of stents in the LAD and Circumflex artery. 2. 99% stenosis of the mid RCA 3. successful placement of a drug eluting stent in the mid RCA 4. LVEF 10% Recommendations Patient refuses referral for an ICD. Medications Administered Prasugrel <ELECTRONICALLY SIGNED> By: Abundio Abdullahi MD, [facility] 12/26/19 1659 1659 1659Dasantiago Abdullahi MD, FACC /INF
[2019-12-27 04:00] VITALS: BP 123/75
[2019-12-27 04:59] LABS: HEMATOCRIT 40.8 % (42.0-52.0); HEMOGLOBIN 13.7 gm/dL (14.0-18.0); MCH 30.1 pg (26.0-34.0); MCHC 33.7 g/dL (28.0-37.0); MCV 89.4 fL (80.0-100.0); MPV 8.8 fl. (7.2-11.1); RBC 4.56 mil/uL (4.50-6.00); RDW-CV 14.7 % (10.5-14.5)
[2019-12-27 05:22] LABS: CALCIUM 8.4 mg/dL (8.5-10.1); CREATININE 1.4 mg/dL (0.6-1.3); POTASSIUM 4.2 mmol/L (3.5-5.1)
[2019-12-27 07:55] VITALS: BP 140/91
[2019-12-27 08:04] VITALS: BP 116/84
[2019-12-27 09:23] VITALS: BP 116/84
[2019-12-27 09:30] VITALS: BP 116/84
[2019-12-27 09:35] VITALS: BP 116/84
[2019-12-27] MEDS ORDERED: EFFIENT10 MG PO (09:53)
[2019-12-27] MEDS ORDERED: SPIRONOLACTONE25 MG PO (09:55)
[2019-12-27] MEDS ORDERED: NITROSTAT0.4 M1 SUBLING (09:57)
[2019-12-27] MEDS ORDERED: RED YEAST RICE600 MG PO (09:58)
--- NOTE | 2019-12-27 11:07 | EKG ---
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 : 1945 Requested By: Abundio Abdullahi Order Number: [id number] Reading MD: Abundio Abdullahi Measurements Intervals [place] Rate: 84 P: 71 TN: 218 QRS: -86 QRSD: 117 T: 124 QT: 433 QTc: 512 Interpretive Statements Sinus rhythm old anterior infarction Ventricular bigeminy Borderline prolonged [place] interval Left anterior fascicular block Low voltage, extremity leads Nonspecific T abnormalities, lateral leads Compared to ECG 12/26/2019 10:44:27 no change Electronically Signed On 12-27-2019 11:05:30 CDT by Abundio Abdullahi [email or web address] <ELECTRONICALLY SIGNED> By: Abundio Abdullahi MD, [facility] 12/27/19 1105 0347 0347 Abundio Abdullahi MD, [facility] /EPI
--- NOTE | 2019-12-29 14:17 | EKG ---
[place] [address] ELECTROCARDIOGRAM REPORT Name: LARA BERMANFRANCISCO J Esparza Room: [address] IN ..#: [id number] Admission: 12/24/19 Attend Phys: Daniel Brizuela Discharge: 12/27/19 Date of : 47 Date of Service: 12/27/19 0818 Report #: [id number] THIS REPORT FOR: //name// [facility] Test Date: 2019-12-27 Test Time: 08:18:05 Pat Name: PRISCILA BERMAN Department: Room: [address] Gender: M Director Of Resource Development: : 1945 Requested By: Daniel Brizuela Order Number: [id number] Irma MD: Walt Mazariegos Measurements Intervals [place] Rate: 80 P: 68 NE: 224 QRS: -86 QRSD: 115 T: 125 QT: 439 QTc: 507 Interpretive Statements Sinus rhythm Ventricular bigeminy Prolonged NE interval Probable left atrial enlargement Left anterior fascicular block Nonspecific T abnormalities, lateral leads Compared to ECG 12/27/2019 03:47:54 Myocardial infarct finding no longer present T-wave abnormality still present Electronically Signed On 12-29-2019 14:16:12 CDT by Walt Mazariegos [email or web address] <ELECTRONICALLY SIGNED> By: Walt Mazariegos MD, [facility] 12/29/19 1416 7 7 Walt Mazariegos MD, [facility] /EPI
== END 2019-12-27 10:45 | disposition home or self-care (01) | DRG 246 ==
LOC: M.ERS 12:15 → M.TBA-ER 13:37 → M.2W 13:37
PROVIDERS: Emergency Medicine Emergency Medical Services; Internal Medicine Cardiovascular Disease; ADMIT Internal Medicine
PROC: 4A023N7 Measurement of Cardiac Sampling and Pressure, Left Heart, Percutaneous Approach (ICD-10-PCS; principal; 2019-12-24)
PROC: B211YZZ Fluoroscopy of Multiple Coronary Arteries using Other Contrast (ICD-10-PCS; principal; 2019-12-24)
PROC: 027136Z Dilation of Coronary Artery, Two Arteries with Three Drug-eluting Intraluminal Devices, Percutaneous Approach (ICD-10-PCS; principal; 2019-12-24)
PROC: B215YZZ Fluoroscopy of Left Heart using Other Contrast (ICD-10-PCS; 2019-12-26)
PROC: 027034Z Dilation of Coronary Artery, One Artery with Drug-eluting Intraluminal Device, Percutaneous Approach (ICD-10-PCS; 2019-12-26)
PROC: B211YZZ Fluoroscopy of Multiple Coronary Arteries using Other Contrast (ICD-10-PCS; 2019-12-26)
PROC: 4A023N7 Measurement of Cardiac Sampling and Pressure, Left Heart, Percutaneous Approach (ICD-10-PCS; 2019-12-26)
DX: I21.4 Non-ST elevation (NSTEMI) myocardial infarction (principal); I50.23 Acute on chronic systolic (congestive) heart failure; I13.0 Hypertensive heart and chronic kidney disease with heart failure and stage 1 through stage 4 chronic kidney disease, or unspecified chronic kidney disease; I25.110 Atherosclerotic heart disease of native coronary artery with unstable angina pectoris; E78.5 Hyperlipidemia, unspecified; E78.00 Pure hypercholesterolemia, unspecified; I49.3 Ventricular premature depolarization; I25.5 Ischemic cardiomyopathy; E11.40 Type 2 diabetes mellitus with diabetic neuropathy, unspecified; E11.22 Type 2 diabetes mellitus with diabetic chronic kidney disease; N18.9 Chronic kidney disease, unspecified; I25.2 Old myocardial infarction; Z90.5 Acquired absence of kidney; Z79.84 Long term (current) use of oral hypoglycemic drugs; Z79.82 Long term (current) use of aspirin; Z79.899 Other long term (current) drug therapy; Z85.528 Personal history of other malignant neoplasm of kidney

== ENCOUNTER → 2019-12-30 | Outpatient (CLI) | payer MEDICARE, BC ==
[~2019-12-30] MED LIST changes: +EFFIENT10 MG PO; +ENTRESTO 24 MG1 EACH PO; +NITROSTAT0.4 M1 SUBLING; +RED YEAST RICE600 MG PO; +SPIRONOLACTONE25 MG PO; +TRADJENTA5 MG
== END ==
LOC: M.ULTRA 13:16
DX: S30.1XXA Contusion of abdominal wall, initial encounter (principal); X58.XXXA Exposure to other specified factors, initial encounter; Y93.89 Activity, other specified; Y92.89 Other specified places as the place of occurrence of the external cause; Y99.8 Other external cause status

== ENCOUNTER → 2020-04-06 | Outpatient (CLI) | payer MEDICARE, BC ==
[2020-04-06 16:06] LABS: CALCIUM 9.3 mg/dL (8.5-10.1); CREATININE 1.4 mg/dL (0.6-1.3); POTASSIUM 4.6 mmol/L (3.5-5.1)
== END ==
LOC: M.LAB 15:25
PROVIDERS: ATTEND Registered Nurse
DX: I25.5 Ischemic cardiomyopathy (principal)

== ENCOUNTER → 2020-09-07 | Outpatient (CLI) | payer MEDICARE, BC ==
[2020-09-07 15:11] LABS: CALCIUM 9.7 mg/dL (8.5-10.1); CREATININE 1.5 mg/dL (0.6-1.3); POTASSIUM 4.4 mmol/L (3.5-5.1)
== END ==
LOC: M.LAB 14:35
PROVIDERS: ATTEND Nurse Practitioner
DX: I25.5 Ischemic cardiomyopathy (principal); R68.89 Other general symptoms and signs

== ENCOUNTER → 2020-09-13 | Outpatient (CLI) | payer MEDICARE, BC ==
--- NOTE | 2020-09-13 15:04 | 2DMMODE ---
[place] [address] 2 D/M-MODE ECHOCARDIOGRAM Name: PRISCILA BERMAN Room: [facility]#: [id number] Admission: 09/13/20 Attend Phys: Sandy Hawkins, Discharge: Date of : 47 Date of Service: 09/13/20 1504 Report #: [id number] THIS REPORT FOR: cc: Walt Roy John E. DO Holkins, John M. MD [facility] ~ APPROVED REPORT Study performed: 09/13/2020 13:46:10 EXAM: Comprehensive 2D, Doppler, and color-flow Echocardiogram Patient Location: Out-Patient BSA: 2.09 HR: 75 bpm BP: 120/70 mmHg Other Information Study Quality: Good Indications Cardiomyopathy 2D Dimensions IVSd: 14.43 (7-11mm) LVOT Diam: 20.83 (18-24mm) LVDd: 62.99 mm PWd: 10.87 (7-11mm) Ascending Ao: 36.11 (22-36mm) LVDs: 52.99 (25-40mm) Aortic Root: 30.88 mm Volumes Left Atrial Volume (Systole) LA ESV Index: 36.90 mL/m2 Aortic Valve AoV Peak Alfredo.: 0.85 m/s AO Peak Gr.: 2.89 mmHg LVOT Max P.04 mmHg AO Mean Gr.: 1.82 mmHg LVOT Mean P.48 mmHg LVOT Max V: 0.51 m/s AO V2 VTI: 13.91 cm LVOT Mean V: 0.32 m/s JENNIFER (VTI): 1.88 cm2 LVOT V1 VTI: 7.68 cm Mitral Valve E/A Ratio: 3.87 [place] [address] 2 D/M-MODE ECHOCARDIOGRAM Name: PRISCILA BERMAN Room: [facility]#: [id number] Admission: 09/13/20 Attend Phys: Sandy Hawkins, Discharge: Date of : 47 Date of Service: 09/13/20 1504 Report #: [id number] MV Decel. Time: 145.04 ms MV E Max Alfredo.: 0.64 m/s MV PHT: 42.06 ms MVA (PHT): 5.23 cm2 TDI E/Lateral E': 8.00 E/Medial E': 16.00 Medial E' Alfredo.: 0.04 m/s Lateral E' Alfredo.: 0.08 m/s Pulmonary Valve PV Peak Alfredo.: 0.55 m/s PV Peak Gr.: 1.21 mmHg Tricuspid Valve RAP Estimate: 5.00 mmHg TR Peak Gr.: 21.72 mmHg RVSP: 26.72 mmHg PA Pressure: 26.72 mmHg Left Ventricle Left ventricle is moderately dilated. There is severe diffuse hypokinesis of left ventricular wall motion. There is normal left ventricular wall thickness. Left ventricular systolic function is severely decreased. LVEF is 25%. This study is not technically sufficient to allow evaluation of the LV diastolic function. Right Ventricle The right ventricle is normal size. The right ventricular systolic function is normal. Atria Left atrium is mildly dilated. The right atrium size is normal. Aortic Valve Mild aortic valve sclerosis. Mild aortic regurgitation. There is no aortic valvular stenosis. Mitral Valve Mild mitral annular calcification. Mild mitral regurgitation. No evidence of mitral valve stenosis. Tricuspid Valve The tricuspid valve is normal in structure. Mild tricuspid regurgitation[place] [address] 2 D/M-MODE ECHOCARDIOGRAM Name: PRISCILA BERMAN Room: [facility]#: [id number] Admission: 09/13/20 Attend Phys: Sandy Hawkins, Discharge: Date of : 47 Date of Service: 09/13/20 1504 Report #: [id number] The pulmonary valve is normal in structure. Mild pulmonic regurgitation. Great Vessels The aortic root is normal in size. IVC is normal in size and collapses >50% with inspiration. Pericardium There is no pericardial effusion. <Conclusion> Left ventricle is moderately dilated. There is normal left ventricular wall thickness. Left ventricular systolic function is severely decreased. LVEF is 25%. The right ventricle is normal size. Left atrium is mildly dilated. Mild aortic valve sclerosis. Mild aortic regurgitation. There is no aortic valvular stenosis. Mild mitral annular calcification. Mild mitral regurgitation. The tricuspid valve is normal in structure. Mild tricuspid regurgitation. IVC is normal in size and collapses >50% with inspiration. There is no pericardial effusion. There is severe diffuse hypokinesis of left ventricular wall motion. <ELECTRONICALLY SIGNED> By: Walt Mazariegos MD, FACC 09/13/20 1504 1504 1504 Walt Mazariegos MD, FACC /INF
== END ==
LOC: M.CRD 13:43
PROVIDERS: ATTEND Nurse Practitioner
DX: I08.8 Other rheumatic multiple valve diseases (principal); I25.5 Ischemic cardiomyopathy

== ENCOUNTER → 2020-09-17 | Outpatient (CLI) | payer MEDICARE, BC ==
[2020-09-17 14:43] LABS: CALCIUM 10.1 mg/dL (8.5-10.1); CREATININE 1.6 mg/dL (0.6-1.3)
== END ==
LOC: M.LAB 14:17
PROVIDERS: ATTEND Internal Medicine Cardiovascular Disease
DX: I25.5 Ischemic cardiomyopathy (principal); I50.42 Chronic combined systolic (congestive) and diastolic (congestive) heart failure; I10 Essential (primary) hypertension

== ENCOUNTER → 2020-09-21 | Outpatient (CLI) | payer MEDICARE, BC ==
[2020-09-21 15:09] LABS: URINE BILIRUBIN NEGATIVE (Negative); URINE BLOOD NEGATIVE (Negative); URINE CLARITY CLEAR; URINE COLOR YELLOW; URINE GLUCOSE-RANDOM NEGATIVE (Negative); URINE KETONES NEGATIVE (Negative); URINE LEUKOCYTES-REFLEX NEGATIVE (Negative); URINE NITRITE-REFLEX NEGATIVE (Negative); URINE PROTEIN NEGATIVE (Negative); URINE UROBILINOGEN 0.2 E.U./dl (0.2-1.0)
== END ==
LOC: M.RAD 14:27
PROVIDERS: ATTEND Nurse Practitioner
DX: I50.42 Chronic combined systolic (congestive) and diastolic (congestive) heart failure (principal); R31.9 Hematuria, unspecified; I51.7 Cardiomegaly

== ENCOUNTER 2021-04-02 16:43 | Inpatient (IN) | payer MEDICARE, BC ==
[2021-04-02] VITALS (17 sets, daily range): BP systolic 74–163; BP diastolic 38–123
[~2021-04-02] VITALS: Ht 182.9 cm; Wt 112.4 kg
[2021-04-02] MEDS ORDERED: COZAAR 25 MG TA25 M1 PO (16:55)
[2021-04-02] MEDS ORDERED: NEURONTIN 300M300 M2 PO (16:55)
[2021-04-02 17:04] LABS: ABSOLUTE BASOPHILS 0.1 thou/uL (0.0-0.2); ABSOLUTE EOSINOPHILS 0.3 thou/uL (0.0-0.7); ABSOLUTE LYMPHOCYTES 1.3 thou/uL (0.8-5.3); ABSOLUTE MONOCYTES 0.6 thou/uL (0.0-1.2); ABSOLUTE NEUTROPHILS 4.9 thou/uL (1.6-8.1); BASOPHILS 1.2 %; EOSINOPHILS 4.7 %; HEMATOCRIT 45.6 % (42.0-52.0); HEMOGLOBIN 15.1 gm/dL (14.0-18.0); LYMPHOCYTES 18.2 %; MCH 29.9 pg (26.0-34.0); MCHC 33.1 g/dL (28.0-37.0); MCV 90.3 fL (80.0-100.0); MONOCYTES 7.7 %; MPV 8.1 fl. (7.2-11.1); NUCLEATED RBCS 0 /100WBC; PLATELET COUNT* 199 thou/uL (150-400); POLYS 68.2 %; RBC 5.06 mil/uL (4.50-6.00); RDW-CV 13.7 % (10.5-14.5); WBC 7.2 thou/uL (4.0-11.0)
[2021-04-02 17:14] LABS: CREATININE 1.7 mg/dL (0.6-1.3); POTASSIUM 4.2 mmol/L (3.5-5.1)
[2021-04-02 17:24] LABS: ALBUMIN 3.8 g/dL (3.4-5.0); MAGNESIUM 2.2 mg/dL (1.8-2.4); TOTAL BILIRUBIN 0.6 mg/dL (<0.1-1.0); TOTAL PROTEIN 6.9 g/dL (6.4-8.2)
--- NOTE | 2021-04-02 17:49 | NUR ---
SEE CODE STEMI PAPERWORK
[2021-04-02 21:37] LABS: ABSOLUTE BASOPHILS 0.1 thou/uL (0.0-0.2); ABSOLUTE EOSINOPHILS 0.2 thou/uL (0.0-0.7); ABSOLUTE LYMPHOCYTES 1.8 thou/uL (0.8-5.3); ABSOLUTE MONOCYTES 1.1 thou/uL (0.0-1.2); ABSOLUTE NEUTROPHILS 16.7 thou/uL (1.6-8.1); BASOPHILS 0.7 %; EOSINOPHILS 0.8 %; HEMATOCRIT 45.2 % (42.0-52.0); HEMOGLOBIN 14.3 gm/dL (14.0-18.0); LYMPHOCYTES 9.1 %; MCH 29.3 pg (26.0-34.0); MCHC 31.6 g/dL (28.0-37.0); MCV 92.7 fL (80.0-100.0); MONOCYTES 5.5 %; MPV 8.7 fl. (7.2-11.1); NUCLEATED RBCS 0 /100WBC; PLATELET COUNT* 226 thou/uL (150-400); POLYS 83.9 %; RBC 4.88 mil/uL (4.50-6.00); RDW-CV 14.3 % (10.5-14.5); WBC 19.9 thou/uL (4.0-11.0)
[2021-04-02 21:55] LABS: ALBUMIN 3.3 g/dL (3.4-5.0); CALCIUM 7.9 mg/dL (8.5-10.1); POTASSIUM 4.9 mmol/L (3.5-5.1); TOTAL BILIRUBIN 1.5 mg/dL (<0.1-1.0); TOTAL PROTEIN 6.2 g/dL (6.4-8.2)
[2021-04-02 22:08] LABS: PCO2 63.6 mmHg (35.0-45.0); pH 7.089 (7.340-7.450)
[2021-04-02 22:09] LABS: PO2 42.5 mmHg (75.0-100.0)
[2021-04-03] VITALS (67 sets, daily range): BP systolic 71–245; BP diastolic -38–109
[2021-04-03 00:40] LABS: BE -11.3 mmol/L (-2 to +3); PCO2 44.9 mmHg (35.0-45.0)
[2021-04-03 00:45] LABS: PO2 47.9 mmHg (75.0-100.0); pH 7.189 (7.340-7.450)
[2021-04-03 03:59] LABS: HEMATOCRIT 41.3 % (42.0-52.0); HEMOGLOBIN 13.6 gm/dL (14.0-18.0); MCH 29.8 pg (26.0-34.0); MCHC 32.8 g/dL (28.0-37.0); MCV 90.7 fL (80.0-100.0); NUCLEATED RBCS 0 /100WBC; PLATELET COUNT* 213 thou/uL (150-400); RBC 4.55 mil/uL (4.50-6.00); RDW-CV 14.1 % (10.5-14.5); WBC 11.7 thou/uL (4.0-11.0)
[2021-04-03 06:38] LABS: ABSOLUTE LYMPHOCYTES 1.2 thou/uL (0.8-5.3); ABSOLUTE MONOCYTES 0.1 thou/uL (0.0-1.2); ABSOLUTE NEUTROPHILS 10.4 thou/uL (1.6-8.1); PLATELET ESTIMATE ADEQUATE
[2021-04-03 10:11] LABS: BE -2.5 mmol/L (-2 to +3); PCO2 36.7 mmHg (35.0-45.0); pH 7.394 (7.340-7.450)
[2021-04-03 10:14] LABS: PO2 207.8 mmHg (75.0-100.0)
--- NOTE | 2021-04-03 10:50 | EKG ---
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 : 1945 Requested By: Sotero Carcamo Order Number: [id number] MD: Lincoln Ferreira Measurements Intervals [place] Rate: 95 P: 22 AL: 217 QRS: -62 QRSD: 164 T: 104 QT: 447 QTc: 562 Interpretive Statements Sinus rhythm with apcs Multiform ventricular premature complexes Prolonged AL interval Nonspecific IVCD with LAD LVH with secondary repolarization abnormality Inferolateral infarct, acute (RCA) Probable RV involvement, suggest recording right precordial leads Electronically Signed On 04-03-2021 10:50:03 CDT by Lincoln Ferreira [email or web address] <ELECTRONICALLY SIGNED> By: Xu Ferreira MD, [facility] 04/03/21 105 49 49 Xu Ferreira MD, [facility] /EPI
--- NOTE | 2021-04-03 10:50 | EKG ---
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 : 1945 Requested By: Sotero Carcamo Order Number: [id number] Reading MD: Lincoln Ferreira Measurements Intervals [place] Rate: 95 P: 5 CT: 203 QRS: -56 QRSD: 159 T: 102 QT: 443 QTc: 557 Interpretive Statements Unknown rhythm, irregular rate Nonspecific IVCD with LAD Left ventricular hypertrophy Inferolateral infarct, acute (RCA) Probable RV involvement, suggest recording right precordial leads Baseline wander in lead(s) V2 Compared to ECG 04/02/2021 16:50:31 Sinus rhythm no longer present Ventricular premature complex(es) no longer present First degree AV block no longer present Early repolarization no longer present Myocardial infarct finding still present Electronically Signed On 04-03-2021 10:50:13 CDT by Lincoln Ferreira [email or web address] <ELECTRONICALLY SIGNED> By: Xu Ferreira MD, [facility] 04/03/21 1050 50 50 Xu Ferreira MD, [facility] /EPI
[2021-04-03 11:10] LABS: ALBUMIN 2.2 g/dL (3.4-5.0); CALCIUM 7.5 mg/dL (8.5-10.1); MAGNESIUM 1.5 mg/dL (1.8-2.4); TOTAL BILIRUBIN 1.4 mg/dL (<0.1-1.0); TOTAL PROTEIN 4.6 g/dL (6.4-8.2)
[2021-04-03 11:11] LABS: POTASSIUM 3.2 mmol/L (3.5-5.1)
[2021-04-03 22:16] LABS: URINE BILIRUBIN NEGATIVE (Negative); URINE BLOOD 3+ (Negative); URINE CLARITY CLEAR; URINE COLOR YELLOW; URINE GLUCOSE-RANDOM NEGATIVE (Negative); URINE KETONES NEGATIVE (Negative); URINE LEUKOCYTES NEGATIVE (Negative); URINE NITRITE NEGATIVE (Negative); URINE PROTEIN 1+ (Negative); URINE UROBILINOGEN 0.2 E.U./dl (0.2-1.0)
[2021-04-03 22:45] LABS: CASTS None Seen /LPF (None Seen); SQUAMOUS 0-3 Few /LPF (0-3)
[2021-04-03 22:46] LABS: URINE RBC 3-10 Few /HPF (0-2); URINE WBC 0-5 Rare /HPF (0-5)
[2021-04-03 22:47] LABS: AMORPHOUS URATES Few /LPF (None Seen)
[2021-04-04] VITALS (55 sets, daily range): BP systolic 83–143; BP diastolic 46–73
[2021-04-04 00:25] LABS: HEMATOCRIT 36.7 % (42.0-52.0)
--- NOTE | 2021-04-04 01:34 | NUR ---
ASSESSMENT SHOWS LOSS OF PULSES TO THE LOWER EXTREMITIES BILATERALLY. UNABLE TO DOPPLE PULSE ON EITHER SIDE IN PEDAL, POSTERIOR TIB, OR POPLITEAL SITES. ABLE TO DOPPLE A FAINT FEMORAL PULSE BILATERALLY. PATIENT ALSO HAVING SINGH BLOODY SECRETIONS FROM ET TUBE AND BLOOD TINGED GI CONTENTS FROM OG. HEPARIN GTT SHUT OFF. SPOKE WITH DR SALAZAR AND DR FIGUEROA ON FINDINGS. BOTH PHYSICIANS OK WITH HEPARIN GTT BEING SHUT OFF. NO FURTHER ORDERS FROM EITHER PHYSICIAN. WILL CONTINUE TO MONITOR PATIENT STATUS
[2021-04-04 04:16] LABS: HEMATOCRIT 34.6 % (42.0-52.0); HEMOGLOBIN 11.7 gm/dL (14.0-18.0); MCHC 33.7 g/dL (28.0-37.0); MPV 8.5 fl. (7.2-11.1); RBC 3.89 mil/uL (4.50-6.00); RDW-CV 13.6 % (10.5-14.5); WBC 14.3 thou/uL (4.0-11.0)
[2021-04-04 04:33] LABS: CALCIUM 7.2 mg/dL (8.5-10.1); CREATININE 1.9 mg/dL (0.6-1.3); MAGNESIUM 1.9 mg/dL (1.8-2.4)
[2021-04-04 04:37] LABS: POTASSIUM 4.3 mmol/L (3.5-5.1)
--- NOTE | 2021-04-04 09:48 | CARD ---
[address] [address] CARDIAC CATH REPORT Name: PRISCILA BERMAN Room: [address] IN [facility]#: [id number] Admission: 04/02/21 Attend Phys: Deven Madrid MD Discharge: Date of : 47 Report #: [id number] THIS REPORT FOR: cc: Walt Roy John E. DO Park, Jin S. MD ~ APPROVED REPORT Study performed: 04/02/2021 17:15:43 Patient Details Patient Status: ED Room #: The patient is a 75 year-old male Event Personnel Noemy Anne RN RN, Kim Todd, Angelo Stinson RTR ScrubMeena Jin Business Quality Assurance Analyst Procedures Performed Coronary Angiography Only [id number] CORANG JONO Revasc Chronic Ttl Occl Single CIRC C9607 CTOREVSING IABP Placement [id number] IABPI Indication CHF Current Status: , STEMI (>0 to less than or equal to 6 hours), Dyspnea, Cardiomyopathy, Chest pain Risk Factors Peripheral Vascular Disease, Hypercholesterolemia, Coronary Artery DiseaseHypertension Previous Procedures/Diagnoses Previous PCI, Previous NH Admission/Lab Medications/Medications given during procedure Ticagrelor PO 180 mg, Lidocaine Subcut 10 ml, Angiomax IV 13 ml, Angiomax Drip IV 30.1 ml per hr, Aggrastat Unknown 8.6 ml Procedure Narrative The patient was brought emergently to the Cardiac Catheterization Laboratory and was prepped and draped in a sterile manner. The right femoral was infiltrated with 2% Lidocaine subcutaneous anesthesia. IV conscious sedation was used [place] [address] CARDIAC CATH REPORT Name: CULLENPRISCILA L Room: [address]#: [id number] Admission: 04/02/21 Attend Phys: Deven Madrid MD Discharge: Date of : 46 Report #: [id number] monitoring and was performed in the presence of a registered nurse who was an independent trained observer other than the physician performing the procedure. A Reeds Spring 6 FR sheath was inserted into the right femoral artery. Coronary angiography was performed using coronary diagnostic catheters. The right coronary system was accessed and visualized with a Diagnostic JR4 6Fr catheter. The left coronary system was accessed and visualized with a Diagnostic JL4 6Fr catheter. Pre-demployment femoral angiogram was performed . There was no hematoma. Intraoperative Conscious Sedation Sedation start time: 1738 Case end Time: 1854 Fluoro Time: 12.3 minutes Dose: DAP 786524 cGycm2 1687.88 mGy Contrast Type and Amount: Visipaque 140 ml Coronary Angiography The patient's coronary anatomy is right dominant. Diagnostic Cath Left Main The left main artery is a large-caliber vessel, with mild ostial stenosis. LAD There is a long stented area beginning from the proximal LAD extending out to the first half of the mid LAD segment. There is mild restenosis within the stented area. In the latter half of the mid LAD segment, the vessel is a small caliber vessel with severe diffuse disease. This is unchanged from prior cardiac catheterizations. There is ALVIN II/III flow down to the apical LAD, mostly due to decreased cardiac output. Diagonal 1 Small caliber vessel. Circumflex This is the culprit vessel with a total occlusion in the proximal left circumflex stent. There are overlapping stents beginning from the proximal segment extending out to the distal left circumflex segment. There are filling defects within the stented area consistent with thrombus. OM1 This is a moderate-sized caliber vessel, supplied by the distal left circumflex artery. Right Coronary The RCA is a dominant vessel, with a patent stent in the mid segment with mild restenosis. R PDA This is a moderate-sized caliber vessel, patent with no flow-limiting lesions. RPLV This is a small to moderate-sized caliber vessel with a severe proximal stenosis, 70%. [place] [address] CARDIAC CATH REPORT Name: PRISCILA BERMAN Room: [address] IN M.R.#: [id number] Admission: 04/02/21 Attend Phys: Deven Madrid MD Discharge: Date of : 46 Report #: [id number] Left Ventriculography Left Ventriculography was not performed. The patient has known severe cardiomyopathy, left ventriculogram from 2019 revealed EF in the 15 to 20% range. This was confirmed by an echo performed in 2020. Hemodynamics The aortic pressure is 86/52 mmHg with a mean of 69 mmHg. PCI Technique Lesion Anticoagulation was achieved with Angiomax. Percutaneous coronary intervention was performed on the Proximal/mid circumflex artery segment. The lesion stenosis prior to intervention was 100% with ALVIN 0 flow. A Reeds Spring 6 FR Guide Catheter was used to engage the ostium. A Luge Wire Interventional Guidewire was used to cross the lesion. BALLOON DILATION A Balloon catheter Euphora SC 3.0x15mm was inserted and inflated up to 18.00atm for 7seconds. Additional Inflation: 20.00atm for 8seconds. After a wire was successfully placed into the distal left circumflex artery, a thrombectomy procedure was performed. A quick cat thrombectomy catheter was passed through the body of the left circumflex artery several times, with removal of thrombus. After this was performed, there was holiness of ALVIN-3 blood flow down into the distal marginals. There was a significant residual stenosis in the proximal left circumflex stent and balloon angioplasty was performed. STENT DEPLOYMENT A drug-eluting stent Landon RX Stent 3.5X18mm was inserted and inflated up to 18.00atm for 6seconds. Final angiography reveals % stenosis with ALVIN 3 flow. COMMENTS Upon arrival to the cardiac Electronic Assembler Group Leader, the patient was noted to be hypotensive and pressors were initiated. During the PCI procedure, the patient developed PEA with cardiac arrest. CPR/ACLS was performed, please see the code sheet for full details. The patient was intubated and treated with medications including epinephrine, bicarb, atropine. Multiple vasopressors were given including Dallas-Synephrine, dopamine and Levophed. He did exhibit episodes of nonsustained VT and was treated with amiodarone as per protocol. An intra-aortic balloon pump was placed. The patient's hemodynamics [address] [address] CARDIAC CATH REPORT Name: PRISCILA BERMAN Room: [address] IN [place].#: [id number] Admission: 04/02/21 Attend Phys: Deven Madrid MD Discharge: Date of : 46 Report #: [id number] improved and he was taken to the ICU. Conclusion 1. PCI performed including thrombectomy, balloon angioplasty and stent placement to the total occlusion in the left circumflex stent. 2. The proximal LAD stent is patent. However, the mid/distal LAD is small caliber vessel with severe diffuse disease. This is unchanged from prior cardiac catheterizations. 3. The RCA stent is patent with mild restenosis. 4. History of severe cardiomyopathy, presented with cardiogenic shock in the setting of acute NH. 5. Episode of CODE BLUE/PEA requiring ACLS protocol including intubation. 6. Placement of intra-aortic balloon pump for cardiogenic shock. 7. The patient is transferred to the ICU in critical condition. <ELECTRONICALLY SIGNED> By: Beny Robledo MD 04/04/21 0947 0947 0947Beny Robledo MD /INF
[2021-04-04 10:49] LABS: BE 1.6 mmol/L (-2 to +3); PCO2 32.9 mmHg (35.0-45.0); PO2 110.4 mmHg (75.0-100.0)
[2021-04-04 11:08] LABS: ALBUMIN 2.2 g/dL (3.4-5.0); DIRECT BILIRUBIN 1.1 mg/dL (<0.1-0.3); TOTAL BILIRUBIN 2.8 mg/dL (<0.1-1.0); TOTAL PROTEIN 5.1 g/dL (6.4-8.2)
--- NOTE | 2021-04-04 11:43 | CON ---
[address] [address] CONSULTATION Name: PRISCILA BERMAN Room: [address] IN .R.#: [id number] Admission: 04/02/21 Attend Phys: Deven Madrid MD Discharge: Date of : 46 Report #: [id number] THIS REPORT FOR: cc: Walt Roy John E. DO Park, Jin S. MD ~ DATE OF CONSULTATION: 04/02/2021 CARDIOLOGY CONSULTATION INDICATION: Chest pain. HISTORY OF PRESENT ILLNESS: This is a 75-year-old gentleman with a history of AR, multiple stent placements, ischemic cardiomyopathy, diabetes mellitus, hypercholesterolemia, presenting with acute onset of chest pain. He was carrying groceries when he developed substernal chest pain, radiating up to the upper back and neck area. He felt nauseous. There is no history of fever, chills or diarrhea. The ECG reveals sinus rhythm with ST elevation inferiorly with ST segment depression in leads V2 and V3. His symptoms are similar to his previous infarcts. PAST MEDICAL HISTORY: Multiple MIs with stent placement into the LAD, left circumflex and RCA. Ischemic cardiomyopathy, diabetes mellitus, hypercholesterolemia. ALLERGIES: STATINS. MEDICATIONS: Please see MAR for full listing. SOCIAL HISTORY: Negative for tobacco use. FAMILY HISTORY: Father with a history of heart disease. REVIEW OF SYSTEMS: See HPI. PHYSICAL EXAMINATION: VITAL SIGNS: Blood pressure is 80/60, heart rate is 90 beats per minute. GENERAL APPEARANCE: This is an elderly appearing male in moderate distress. HEENT: Normocephalic, atraumatic. NECK: Supple. LUNGS: Diminished breath sounds at the bases. CARDIAC: Distant heart sounds, S1, S2 positive. ABDOMEN: Soft, nontender. EXTREMITIES: No cyanosis, [place] [address] CONSULTATION Name: CULLENPRISCILA L Room: [address]#: [id number] Admission: 04/02/21 Attend Phys: Deven Madrid MD Discharge: Date of : 46 Report #: [id number] DIAGNOSTIC DATA: ECG reveals sinus rhythm with ST elevation in the inferolateral leads with ST depression in V2 and V3. ASSESSMENT AND PLAN: 1. Acute inferolateral myocardial infarction. The patient was treated with aspirin and heparin in the ER. He will be taken emergently to the cardiac laboratory clerk. 2. Ischemic cardiomyopathy, stable from respiratory standpoint at this time. Need to watch fluid intake given his underlying LV dysfunction. Hold cardiac medications in view of his low blood pressure. 3. Hypercholesterolemia, intolerant to statins. Consider Repatha. 4. Diabetes mellitus, as per PCP. <ELECTRONICALLY SIGNED> By: Beny Robledo MD 04/04/21 1143 1809 0224Jin Jyothi Robledo MD /kaia
--- NOTE | 2021-04-04 14:19 | 2DMMODE ---
[place] [address] 2 D/M-MODE ECHOCARDIOGRAM Name: PRISCILA BERMAN Room: [address] IN [place]#: [id number] Admission: 04/02/21 Attend Phys: Deven Madrid, Discharge: Date of : 47 Date of Service: 04/04/21 1418 Report #: [id number] THIS REPORT FOR: cc: Walt Roy John E. DO Blick,Abundio Wyatt MD [facility] ~ APPROVED REPORT Study performed: 04/04/2021 10:51:25 EXAM: Comprehensive 2D, Doppler, and color-flow Echocardiogram Patient Location: In-Patient Room #: 005 Status: routine BSA: 2.08 HR: 97 bpm BP: 127/65 mmHg Rhythm: NSR Other Information Study Quality: Good Indications Acute CO 2D Dimensions IVSd: 12.24 (7-11mm) LVOT Diam: 24.04 (18-24mm) LVDd: 58.89 mm PWd: 10.75 (7-11mm) Ascending Ao: 38.04 (22-36mm) LVDs: 54.05 (25-40mm) Aortic Root: 41.16 mm Volumes Left Atrial Volume (Systole) LA ESV Index: 54.10 mL/m2 Aortic Valve AoV Peak Alfredo.: 1.19 m/s AO Peak Gr.: 5.62 mmHg LVOT Max P.43 mmHg AO Mean Gr.: 3.15 mmHg LVOT Mean P.23 mmHg LVOT Max V: 0.78 m/s AO V2 VTI: 12.61 cm LVOT Mean V: 0.51 m/s JENNIFER (VTI): 2.81 cm2 LVOT V1 VTI: 7.81 [place] [address] 2 D/M-MODE ECHOCARDIOGRAM Name: CULLENPRISCILA Room: [address]#: [id number] Admission: 04/02/21 Attend Phys: Deven Madrid, Discharge: Date of : 47 Date of Service: 04/04/21 1418 Report #: [id number] TDI Medial E' Alfredo.: 0.07 m/s Lateral E' Alfredo.: 0.04 m/s Left Ventricle Left ventricle is mildly dilated. There is global hypokinesis of the left ventricle. There is normal left ventricular wall thickness. Left ventricular systolic function is severely decreased. LVEF is 20-25%. Grade IV - fixed restrictive diastolic dysfunction. Right Ventricle The right ventricle is normal size. The right ventricular systolic function is normal. Atria Left atrium is severely dilated. The right atrium size is normal. Aortic Valve Mild aortic valve sclerosis. Mild aortic regurgitation. There is no aortic valvular stenosis. Mitral Valve The mitral valve is normal in structure. Moderate mitral regurgitation. No evidence of mitral valve stenosis. Tricuspid Valve The tricuspid valve is normal in structure. Trace tricuspid regurgitation. Unable to assess PA pressure. Pulmonic Valve The pulmonary valve is normal in structure. Mild pulmonic regurgitation. Great Vessels Aortic root is mildly dilated. IVC is not well visualized. Pericardium There is no pericardial effusion. Small left pleural effusion. <Conclusion> LVEF is 20-25%. Left ventricle is mildly dilated. Mild aortic [place] [address] 2 D/M-MODE ECHOCARDIOGRAM Name: PRISCILA BERMAN Room: [address] IN [facility]#: [id number] Admission: 04/02/21 Attend Phys: Deven Madrid, Discharge: Date of : 47 Date of Service: 04/04/211417 Report #: [id number] Mild aortic regurgitation. Moderate mitral regurgitation. <ELECTRONICALLY SIGNED> By: Abundio Abdullahi MD, [facility] 04/04/211417 17 17 Abundio Abdullahi MD, FACC /INF
--- NOTE | 2021-04-04 16:15 | NUR ---
ICU ROUNDS: PT SHOWING SOME IMPROVEMENT FROM YESTERDAY; "MORE STABLE." DR. HOWARD INIDICATED HE SPK WITH PT'S SPOUSE RE: DNR AND CURRENLTY SPOUSE ISNT READY TO MAKE ANY DECISIONS. PT ON VASSO, HEPARIN, VERSED, FENTANYL, AMIO AND INSULIN.
--- NOTE | 2021-04-04 18:12 | NUR ---
THIS SEMICONDUCTOR PACKAGES SEALER ASSUMED CARE OF PT AT 0700 PT ADVANCED TOWARD GOALS APPEAR TO BE MORE HEMODYNICALLY STABLE THROUGHOUT SHIFT ABLE TO TITRATE DOWN ON PRESSORS STILL REMAINS INTBATED AND SEDATED WITH BALLOON PUMP 1: AUGMENTATION GIVE UPDATE TWICE DURING SHIFT PCR FOR COVID STILL PENDING AT THIS TIME
[2021-04-05] VITALS (31 sets, daily range): BP systolic 83–189; BP diastolic 43–182
[2021-04-05 06:20] LABS: HEMOGLOBIN 10.1 gm/dL (14.0-18.0); MCH 30.4 pg (26.0-34.0); MCHC 33.7 g/dL (28.0-37.0); MCV 90.3 fL (80.0-100.0); MPV 8.2 fl. (7.2-11.1); RBC 3.32 mil/uL (4.50-6.00); RDW-CV 14.2 % (10.5-14.5); WBC 10.3 thou/uL (4.0-11.0)
[2021-04-05 06:33] LABS: ANION GAP 13 mmol/L (7-16); BUN 29 mg/dL (7-18); CALCIUM 7.2 mg/dL (8.5-10.1); CHLORIDE 102 mmol/L (98-107); CHOLESTEROL < 50 mg/dL (<200); CO2 21 mmol/L (21-32); CREATININE 1.6 mg/dL (0.6-1.3); GLUCOSE 100 mg/dL (70-99); HDL CHOLESTEROL 18 mg/dL (>40); LDL CHOLESTEROL 21 mg/dL (<100); SODIUM 136 mmol/L (136-145); TC:HDL 2.8 Ratio (Not establshd); TRIGLYCERIDE 58 mg/dL (<150); VLDL 12 mg/dL (<40)
[2021-04-05 06:34] LABS: SERUM ASSESSMENT Clear
[2021-04-05 13:22] LABS: CALCIUM 7.3 mg/dL (8.5-10.1); POTASSIUM 5.8 mmol/L (3.5-5.1)
[2021-04-05 14:43] LABS: BE -13.7 mmol/L (-2 to +3); PCO2 35.7 mmHg (35.0-45.0); PO2 91.3 mmHg (75.0-100.0)
[2021-04-05 14:46] LABS: pH 7.194 (7.340-7.450)
--- NOTE | 2021-04-05 17:14 | NUR ---
Case and plan of care reviewed with MD each weekday during patient's length of stay. Continue plan of care per MD orders for current dx. Remains on Vent 35% FiO2 continuing to wean. IV Versed,Vaso,Insulin gtts
--- NOTE | 2021-04-05 18:41 | NUR ---
ASSUMED CARE OF PT AT 0700 PT PROGRESSED TOWARD GOALS BALLOON PUMP REMOVED AT [address] IRAHETA AT BEDSIDE TOLERATING WELL IN WAITING ROOM UPDATE GIVEN BY DR IRAHETA AND THIS FOLLOW UP SPECIALIST X 2 THROUGHOUT SHIFT PCR STILL PENDING WAITING ON RESULTS
[2021-04-05 20:32] LABS: ABSOLUTE LYMPHOCYTES 0.4 thou/uL (0.8-5.3); ABSOLUTE MONOCYTES 1.1 thou/uL (0.0-1.2); ABSOLUTE NEUTROPHILS 10.2 thou/uL (1.6-8.1); BASOPHILS 0.2 %; HEMATOCRIT 29.9 % (42.0-52.0); HEMOGLOBIN 9.7 gm/dL (14.0-18.0); LYMPHOCYTES 3.2 %; MCH 30.1 pg (26.0-34.0); MCHC 32.4 g/dL (28.0-37.0); MCV 92.9 fL (80.0-100.0); MONOCYTES 9.8 %; MPV 8.9 fl. (7.2-11.1); NUCLEATED RBCS 0 /100WBC; PLATELET COUNT* 97 thou/uL (150-400); POLYS 86.8 %; RBC 3.22 mil/uL (4.50-6.00); RDW-CV 14.6 % (10.5-14.5); WBC 11.7 thou/uL (4.0-11.0)
[2021-04-05 20:37] LABS: CALCIUM 7.1 mg/dL (8.5-10.1); CREATININE 2.6 mg/dL (0.6-1.3); MAGNESIUM 2.3 mg/dL (1.8-2.4); POTASSIUM 5.6 mmol/L (3.5-5.1)
[2021-04-05 20:38] LABS: BE -15.3 mmol/L (-2 to +3); PCO2 31.5 mmHg (35.0-45.0); PO2 102.2 mmHg (75.0-100.0)
[2021-04-05 20:42] LABS: pH 7.188 (7.340-7.450)
[2021-04-06] VITALS (31 sets, daily range): BP systolic 69–120; BP diastolic 48–77
[2021-04-06 06:00] LABS: CALCIUM 6.7 mg/dL (8.5-10.1)
--- NOTE | 2021-04-06 06:57 | NUR ---
ASSUMED PATIENT CARE AT 1900. ASSESSMENTS COMPLETED CHARTED. CARDIAC MONITORING IN PLACE. HOURLY ROUNDING IN PLACE FOR PATIENT SAFETY. FALL PRECAUTIONS IN PLACE FOR PATIENT SAFETY. BED LOCKED AND IN LOWEST POSITION.
[2021-04-06 07:57] LABS: BE -14.4 mmol/L (-2 to +3); PCO2 35.9 mmHg (35.0-45.0); PO2 85.1 mmHg (75.0-100.0)
[2021-04-06 08:03] LABS: pH 7.176 (7.340-7.450)
--- NOTE | 2021-04-06 08:54 | NUR ---
Case and plan of care reviewed with MD each weekday during patient's length of stay. Continue plan of care per MD orders for current dx. Off Balloon pump 04/05/21. IV gtts pressors. IV Abx.Remains on Vent 40% FiO2 Will continue to follow for dc planning needs
--- NOTE | 2021-04-06 10:08 | EKG ---
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 : 1945 Requested By: Abundio Abdullahi Order Number: [id number] Reading MD: Abundio Abdullahi Measurements Intervals [place] Rate: 86 P: 87 IL: 282 QRS: -77 QRSD: 148 T: QT: 478 QTc: 572 Interpretive Statements Sinus rhythm Multiple premature complexes, supraven Prolonged IL interval Nonspecific IVCD with LAD Probable anterolateral infarct Baseline wander in lead(s) V1 Compared to ECG 04/02/2021 16:51:24 Myocardial infarct finding still present Electronically Signed On 04-06-2021 10:08:05 CDT by Abundio Abdullahi [email or web address] <ELECTRONICALLY SIGNED> By: Abundio Abdullahi MD, [facility] 04/06/21 1008 1350 1350 Abundio Abdullahi MD, [facility] /EPI
[2021-04-06 10:36] LABS: BE -13.7 mmol/L (-2 to +3); PCO2 36.7 mmHg (35.0-45.0)
[2021-04-06 10:37] LABS: PO2 234.4 mmHg (75.0-100.0); pH 7.186 (7.340-7.450)
[2021-04-06 12:08] LABS: BE -14.5 mmol/L (-2 to +3); PCO2 35.6 mmHg (35.0-45.0)
[2021-04-06 12:10] LABS: pH 7.176 (7.340-7.450)
[2021-04-06 19:27] LABS: CALCIUM 6.6 mg/dL (8.5-10.1); MAGNESIUM 2.3 mg/dL (1.8-2.4); PHOSPHORUS* 6.3 mg/dL (2.5-4.9); POTASSIUM 5.1 mmol/L (3.5-5.1)
[2021-04-07] VITALS (11 sets, daily range): BP systolic 67–116; BP diastolic 51–75
[2021-04-07 00:56] LABS: CALCIUM 7.1 mg/dL (8.5-10.1); MAGNESIUM 2.2 mg/dL (1.8-2.4); POTASSIUM 4.6 mmol/L (3.5-5.1)
--- NOTE | 2021-04-07 06:43 | NUR ---
PT. AT 529, CRRT WAS IN PROGRESS, MAXED OUT ON ALL PRESSORS. PT. WAS A CHEMICAL CODE ONLY, SEE CODE SHEET. PT'S , DELILAH NOTIFIED. PT'S DAUGHTER AND AT BEDSIDE AT THIS TIME. PT. IS ELIGIBLE FOR TISSUE DONATION. PT. TO BE RELEASED TO [facility] [place] FAMILY HAS LEFT, NO PT. BELONGINGS.
--- NOTE | 2021-04-07 07:52 | EKG ---
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: DT : 1945 Requested By: Abundio Abdullahi Order Number: [id number] Irma MD: Rigo Gamboa Measurements Intervals [place] Rate: 119 P: MO: QRS: -5 QRSD: 182 T: 121 QT: 395 QTc: 556 Interpretive Statements Atrial fibrillation Nonspecific intraventricular conduction delay Borderline T abnormalities, lateral leads Baseline wander in lead(s) V2 Compared to ECG 04/05/2021 13:50:56 T-wave abnormality now present Sinus rhythm no longer present First degree AV block no longer present Myocardial infarct finding no longer present Electronically Signed On 04-07-2021 7:52:17 CDT by Rigo Gamboa [email or web address] <ELECTRONICALLY SIGNED> By: Rigo Gamboa MD, [facility] 04/07/21751 51 51 Rigo Gamboa MD, [facility] /EPI
--- NOTE | 2021-04-08 10:06 | CON ---
[address] [address] CONSULTATION Name: PRISCILA BERMAN Room: [address] IN M.[place].#: [id number] Admission: 04/02/21 Attend Phys: Deven Madrid MD Discharge: 04/07/21 Date of : 47 Report #: [id number] THIS REPORT FOR: cc: Walt Roy John E. DO Khan, Abid R. MD ~ DATE OF CONSULTATION: 04/02/2021 NEPHROLOGY CONSULT CONSULTING PHYSICIAN: Deven Madrid MD REASON FOR CONSULTATION: Acute kidney injury. HISTORY OF PRESENT ILLNESS: A 75-year-old gentleman with coronary artery disease and heart failure with reduced EF, who I am asked to see because of a rising creatinine, refractory metabolic acidosis, hyperkalemia and reduced urine output. He is critically ill. He is being followed by Cardiology. He had an acute MN and was stented and did have intraaortic balloon pump for a period of time, which is now out. His creatinine has gone from 1.7 on admission, up to 3.0 today. He has been on a bicarbonate drip, but remains acidotic. He is on multiple vasopressors. REVIEW OF SYSTEMS: Constitutional, psych, heme, eyes, ENT, respiratory, cardiac, GI, , endocrine, all negative except as documented above and as best can be ascertained. PAST MEDICAL HISTORY: Coronary artery disease, heart failure with reduced EF, noninsulin dependent diabetes, dyslipidemia, history of right nephrectomy and kidney cancer. SOCIAL HISTORY: No tobacco. FAMILY HISTORY: Not pertinent for this 75-year-old gentleman. CURRENT MEDICATIONS: Reviewed. PHYSICAL EXAMINATION: VITAL SIGNS: Blood pressure is 84/55, pulse 90, respirations 16, temperature 38.0. GENERAL: No distress. HEENT: Eyes closed. Ears externally normal. CARDIAC: Regular rate. LUNGS: Diminished. ABDOMEN: [place] [address] CONSULTATION Name: PRISCILA BERMAN Room: [address]#: [id number] Admission: 04/02/21 Attend Phys: Deven Madrid MD Discharge: 04/07/21 Date of : 46 Report #: [id number] MUSCULOSKELETAL: Nontender. Feet are cool. Pulses are diminished, but dopplerable. NEUROLOGIC: Intubated and sedated. LABORATORY DATA: PH is 7.17, pCO2 is 35, bicarbonate 12. Sodium is 133, potassium 6, chloride 96, bicarbonate 15, BUN 42, creatinine 3, glucose 219, calcium 6.7. White cell count 11.7, hemoglobin 9.7, platelets 97. ASSESSMENT: 1. Acute kidney injury and cardiogenic shock with multiple pressor requirement. 2. Acute myocardial infarction, status post stent. 3. Cardiogenic shock, previously had an intraaortic balloon pump. 4. Refractory metabolic acidosis. 5. Hyperkalemia. 6. Hypocalcemia. 7. Volume overload. 8. Bacterial pneumonia, Gram negative. 9. Diabetes type 2, noninsulin dependent. PLAN: Currently on TPN. We will stop that and rewrite TPN without potassium. He is on vasopressin, Dallas-Synephrine, dopamine and Levophed. He is critically ill at this time, but has refractory metabolic acidosis, hyperkalemia and oliguric. I did discuss with both his daughter and in detail. They understand the prognosis is very poor. Informed consent was obtained to attempt CRRT. We will have a temporary dialysis catheter placed today. We will attempt CVVH with no net fluid removal, but we will attempt to correct acidosis and hyperkalemia. We will order serial electrolytes and replacement for electrolytes as needed. Case was discussed with Dr. Abdullahi and Dr. Valverde. Also, discussed with family considering DNR code status given a poor prognosis and unlikely successful resuscitation in the event that he codes and they are contemplating this. The patient is critically ill and 35 minutes of critical care time spent. Case was also discussed with the dialysis nurse. Thank you for requesting my opinion in the care and management of this patient. <ELECTRONICALLY SIGNED> By: Rojelio Garrison MD 04/08/21 1006 1326 1900Rojelio Garrison MD /nt
== END 2021-04-07 05:40 | DRG 853 ==
LOC: M.ERS 16:43 → M.TBA-CV 17:26 → M.CL 17:26 → M.TBA-CV 17:28 → M.ICU 17:28
PROVIDERS: Emergency Medicine Emergency Medical Services; Internal Medicine; Internal Medicine Cardiovascular Disease; Internal Medicine Critical Care Medicine; Internal Medicine Nephrology; Pediatrics; Surgery; ADMIT Internal Medicine; ATTEND Internal Medicine
PROC: 03HY32Z Insertion of Monitoring Device into Upper Artery, Percutaneous Approach (ICD-10-PCS; principal; 2021-04-02)
PROC: B211YZZ Fluoroscopy of Multiple Coronary Arteries using Other Contrast (ICD-10-PCS; principal; 2021-04-02)
PROC: 5A02210 Assistance with Cardiac Output using Balloon Pump, Continuous (ICD-10-PCS; principal; 2021-04-02)
PROC: 4A133B1 Monitoring of Arterial Pressure, Peripheral, Percutaneous Approach (ICD-10-PCS; principal; 2021-04-02)
PROC: 0BH17EZ Insertion of Endotracheal Airway into Trachea, Via Natural or Artificial Opening (ICD-10-PCS; principal; 2021-04-02)
PROC: 5A1955Z Respiratory Ventilation, Greater than 96 Consecutive Hours (ICD-10-PCS; principal; 2021-04-02)
PROC: 4A133J1 Monitoring of Arterial Pulse, Peripheral, Percutaneous Approach (ICD-10-PCS; principal; 2021-04-02)
PROC: 027034Z Dilation of Coronary Artery, One Artery with Drug-eluting Intraluminal Device, Percutaneous Approach (ICD-10-PCS; principal; 2021-04-02)
PROC: 02C03ZZ Extirpation of Matter from Coronary Artery, One Artery, Percutaneous Approach (ICD-10-PCS; principal; 2021-04-02)
PROC: 5A12012 Performance of Cardiac Output, Single, Manual (ICD-10-PCS; principal; 2021-04-02)
PROC: 4A023N7 Measurement of Cardiac Sampling and Pressure, Left Heart, Percutaneous Approach (ICD-10-PCS; principal; 2021-04-02)
PROC: 02HV33Z Insertion of Infusion Device into Superior Vena Cava, Percutaneous Approach (ICD-10-PCS; principal; 2021-04-02)
PROC: B548ZZA Ultrasonography of Superior Vena Cava, Guidance (ICD-10-PCS; 2021-04-06)
PROC: 02HV33Z Insertion of Infusion Device into Superior Vena Cava, Percutaneous Approach (ICD-10-PCS; 2021-04-06)
DX: A41.9 Sepsis, unspecified organism (principal); I21.19 ST elevation (STEMI) myocardial infarction involving other coronary artery of inferior wall; J96.01 Acute respiratory failure with hypoxia; J15.6 Pneumonia due to other Gram-negative bacteria; I50.43 Acute on chronic combined systolic (congestive) and diastolic (congestive) heart failure; N17.0 Acute kidney failure with tubular necrosis; T82.855A Stenosis of coronary artery stent, initial encounter; I46.9 Cardiac arrest, cause unspecified; R65.20 Severe sepsis without septic shock; E78.00 Pure hypercholesterolemia, unspecified; I25.5 Ischemic cardiomyopathy; I25.10 Atherosclerotic heart disease of native coronary artery without angina pectoris; E87.5 Hyperkalemia; E83.51 Hypocalcemia; N18.9 Chronic kidney disease, unspecified; E11.22 Type 2 diabetes mellitus with diabetic chronic kidney disease; E78.5 Hyperlipidemia, unspecified; I48.91 Unspecified atrial fibrillation; Y83.8 Other surgical procedures as the cause of abnormal reaction of the patient, or of later complication, without mention of misadventure at the time of the procedure; Z20.822 Contact with and (suspected) exposure to COVID-19; Z95.5 Presence of coronary angioplasty implant and graft; Z79.82 Long term (current) use of aspirin; I25.2 Old myocardial infarction; Z79.899 Other long term (current) drug therapy; Z85.528 Personal history of other malignant neoplasm of kidney; Y92.89 Other specified places as the place of occurrence of the external cause